=== PATIENT | female | born 1965 | race Caucasian/White ===

== ENCOUNTER → 2018-01-10 07:27 | Outpatient (CLI) | payer OTHER, SELFPAY ==
[2018-01-10 08:18] LABS: Thyroid Stim Hormone (TSH) 2.89 uIU/mL (0.358-3.74)
== END ==
PROVIDERS: Family Provider Family Medicine; PCP Family Medicine; Visit Provider Family Medicine
DX: E66.9 Obesity, unspecified (principal)
CPT/HCPCS: 36415; 84443

== ENCOUNTER 2018-01-19 02:15 | Emergency (ER) | payer OTHER, SELFPAY ==
[2018-01-19 02:17] VITALS: BP 159/79; PULSE 92; RESP 17; TEMP 37.3; O2SAT 96; BMI 38.0
--- NOTE | 2018-01-19 02:23 | CT_ITS ---
STUDY: CT ABDOMEN AND PELVIS WITH CONTRAST REASON FOR EXAM: Female, 52 years old. Increasing nausea and vomiting. RADIATION DOSAGE (If Supplied By Facility): CTDIvol = ( 18.72 ) mGy, DLP = ( 1297.19 ) mGycm TECHNIQUE: Transaxial images were obtained from the dome of the diaphragm to the symphysis pubis without oral contrast. 100ML ml of Isovue 300 contrast was administered. Sagittal and coronal images were reconstructed. Individualized dose optimization techniques were used for this CT. COMPARISON: February 05, 2014. FINDINGS: The visualized lung bases are unremarkable. Mild cardiomegaly. No pericardial effusion. Normal liver. Normal gallbladder and extrahepatic biliary system. Normal spleen. Normal pancreas. Normal bilateral adrenal glands. Normal right kidney. Normal left kidney. Normal visualized stomach. Normal small intestine. Fluid-filled nondilated loops of small bowel. Normal colon. The appendix is well visualized and appears normal. Normal abdominal aorta. Normal inferior vena cava. Normal retroperitoneum. Normal urinary bladder. Uterus grossly normal. Postoperative changes of Essure procedure. No adnexal masses seen. Normal abdominal wall. Normal osseous structures. CT/Abdomen/Pelvis W IV Cont ONLY IMPRESSION: No acute findings in the abdomen or pelvis. No evidence of bowel obstruction. Appendix normal. Normal cardiomegaly. Electronically Signed: Poli Sullivan MD at 4:52 EST , Service support ,
--- NOTE | 2018-01-19 02:33 | ED.DCSUM_ITS ---
- ER Visit Summary Date of Service: 01/19/18 Chief Complaint: Abdominal pain, nausea, vomiting History of Present Illness: The patient is a 52 F Zentz to the emergency department with nausea, vomiting, abdominal pain. The patient is otherwise healthy. She states that about 5 PM yesterday, she had sudden onset abdominal cramping and the urge to vomit. She states she has had approximately 10 episodes of nonbloody, nonbilious emesis. She states that with the vomiting, she has begun to have cramping abdominal pain like a band across her upper abdomen. Last time she moved her bowels was over 24 hours ago. The patient has had no prior abdominal surgery. She denies any fever there was admit to some chills. She has had no urinary symptoms or back pain. Patient has no history of Crohn's disease or ulcerative colitis. She denies any other systemic symptoms. Physical Examination: Vital signs reviewed General: Well-nourished, well-developed Head: Normocephalic, atraumatic Eyes: Pupils equal and reactive, extraocular muscles intact Neck, supple, no lymphadenopathy Heart: Regular rate and rhythm Respiratory: No distress, clear bilaterally Abdomen: Soft, only tender in the midepigastric area without rebound or guarding , hyperactive bowel sounds, nondistended, no peritoneal signs Back: Nontender Extremities: Nontender, no edema, no cords Skin: Normal color no rash Neuro: Alert and oriented, no focal or lateralizing deficits Test Results: Screening legs are relatively unremarkable. CT shows no acute process. Emergency Department Course and Treatment: Patient did have some mild tenderness in the midepigastric area but no rebound or guarding. IV was established. Patient was given Toradol and Zofran. She had resolution of her pain but continued to have nausea. She was given IV Phenergan fluids and had marked improvement of her symptoms. Her labs are unremarkable. The patient has not had a bowel movement and has had vomiting so I did want to rule out obstruction. Patient underwent CT of the abdomen and pelvis. This was unremarkable. There is no acute process. At this time, I do feel the patient is safe for discharge. I will treat her with antiemetics and antispasmodics. She was counseled on concerning symptoms and reasons to return. The patient will be discharged home. Treatment Plan: [] Disposition: Discharge Impression: 1. Abdominal pain 2. Nausea and vomiting This note was generated with [employer] dictation software. It may contain incorrect words, spelling, and punctuation that were not noted in review of the chart prior to signing ED Disposition - Plan for ED Patient: Chief Complaint: Nausea/Vomiting Instructions: ED Nausea Vomiting Prescriptions: Ondansetron [Zofran Odt] 4 mg PO Q8H PRN PRN #10 tab PRN Reason: Nausea Dicyclomine HCl [Bentyl] 20 mg PO TIDAC #20 cap Referrals: Dina Cespedes MD [Primary Care Provider] -
[2018-01-19 02:38] LABS: Absolute Lymphocyte Count 0.56 X10^3/ul (0.83-4.51); Absolute Neutrophil Count 7.7 X10^3/uL (2.0-7.7); Basophil# 0.01 X10^3/uL; Basophil% 0.1 % (0-1); Differential Indicated SCAN CRITERIA MET; Eosinophil# 0.06 X10^3/uL; Eosinophils% 0.7 % (0-5); Hemoglobin 13.6 g/dl (12.0-15.0); Lymphocyte # 0.56 X10^3/ul (4.0); Lymphocyte % 6.3 % (19-41); Mean Corpuscular Hgb 29.8 pg (27.0-32.0); Mean Corpuscular Volume 87.7 fL (81-99); Mean Platelet Vol. 10.7 fl (6.2-12.0); Monocyte# 0.47 X10^3/uL; Monocyte% 5.3 % (0-10); Neutrophil # 7.71 X10^3/uL (2.7-7.7); Neutrophil % 87.4 % (47-70); POSITIVE COUNT NO; POSITIVE DIFFERENTIAL YES; POSITIVE MORPHOLOGY NO; Platelet Count 267 K/mm3 (150-450); RBC Distribution Width CV 13.9 % (11.6-14.6); RBC Distribution Width SD 44.3 fl (35.1-43.9); Red Blood Count 4.56 M/mm3 (4.2-5.4); White Blood Count 8.8 K/mm3 (4.4-11.0)
[2018-01-19] MEDS: 0.9% Normal Saline 1,000 ML 1000 ML IV (02:44)
[2018-01-19] MEDS: Ketorolac 30 MG/ML Syringe 15 MG IV (02:44)
[2018-01-19] MEDS: Ondansetron 4 MG/2 ML Vial IV (02:44)
[2018-01-19 02:53] LABS: ALB/GLOB Ratio 0.9 RATIO (0.9-2.4); AST(SGOT) 13 U/L (15-37); Alanine Aminotransfer ALT/SGPT 20 U/L (13-56); Albumin, Serum 3.4 g/dL (3.2-5.0); Alkaline Phosphatase 83 U/L (45-117); Anion Gap 10 (5-15); BUN 17 mg/dL (7-18); BUN/Creat Ratio 25.5 RATIO (10-20); Calcium,Total 8.1 mg/dL (8.5-10.1); Chloride 109 mmol/L (98-107); Creatinine, Serum 0.67 mg/dL (0.55-1.02); EST Glomerular Filtration Rate 98 mL/min (>60); Est Glom Filt Rate - Afr Amer 119 mL/min (>60); Estimated Creatinine Clearance 89.86 ml/min; Globulin 3.7 g/dL (2.2-4.2); Glucose 119 mg/dL (74-106); Lipase 108 U/L (73-393); Potassium 4.2 mmol/L (3.5-5.1); Protein, Total 7.1 g/dL (6.4-8.2); Sodium Level 140 mmol/L (136-145)
[2018-01-19 04:41] VITALS: BP 135/60; PULSE 78; RESP 16; O2SAT 100
--- NOTE | 2018-01-19 06:08 | ED.RN ---
PT DC'ED BY ANOTHER RN.
== END 2018-01-19 06:08 | disposition home or self-care (01) ==
PROVIDERS: Emergency Provider Emergency Medicine; Family Provider Family Medicine; PCP Family Medicine
DX: R10.13 Epigastric pain (principal); R11.2 Nausea with vomiting, unspecified; R68.83 Chills (without fever); J45.909 Unspecified asthma, uncomplicated
CPT/HCPCS: 74177; 80053; 83690; 85025; 96361; 96374; 96375; 99283; J7030; Q9967; A4216; J2405

== ENCOUNTER 2018-03-04 08:15 | Outpatient (RCR) | payer OTHER, SELFPAY ==
--- NOTE | 2018-01-19 07:49 | MASS.EVAL ---
Massage Therapy Evaluation: Initial Evaluation: Date: 01/18/18 Pt. Name: Angela Casanova :61 V#:[id number] Referring Physician: Dr. 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 Dina Cespedes with the diagnosis of left shoulder and left plantar fascitis. She presents today with symptoms of not able to raise her left arm and pain in left foot . She reports her pain to be 6/10 at worst and 2/10 at rest. The symptoms have been present since July of 2017 for her foot and the past 3 months with left shoulder. The symptoms commenced due to a shoulder injury in the past and not sure the cause of plantar fascitis. The patient also noted that the past 2 months she has been achey all over her body. Angela is currently taking muscle relaxer, breo inhailer, vit d. Objective: The first treatment consisted of a moderate pressure upper body massage. I focused on left upper trapezium, pectorals, deltoid, infra and supra-spinatus, rhomboids,scalenes, left plantar of foot, gastroc, and soleus. Muscle tension was very high and patient was very tender and couldnt handle much pressure. Little trigger point therapy and indian massage was performed. Assessment: Muscles with the most tenderness was the upper trapezium, rhomboids, and supraspinatus. The left calf was very tender with many knots as well. I feel that Angela is a great candidate for massotherapy at this time. Plan: The plan of care was reviewed with the patient. The patient is to be seen once a week for two weeks then as needed on a regular basis for one hour sessions of massotherapy.
--- NOTE | 2018-01-19 08:11 | MASS.EVAL_ITS ---
Massage Therapy Evaluation: Initial Evaluation: Date: 01/18/18 Pt. Name: Angela Casanova :61 V#: [id number] Referring Physician: Dr. 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 Dina Cespedes with the diagnosis of left shoulder and left plantar fascitis. She presents today with symptoms of not able to raise her left arm and pain in left foot . She reports her pain to be 6/10 at worst and 2/10 at rest. The symptoms have been present since July of 2017 for her foot and the past 3 months with left shoulder. The symptoms commenced due to a shoulder injury in the past and not sure the cause of plantar fascitis. The patient also noted that the past 2 months she has been achey all over her body. Angela is currently taking muscle relaxer, breo inhailer, vit d. Objective: The first treatment consisted of a moderate pressure upper body massage. I focused on left upper trapezium, pectorals, deltoid, infra and supra- spinatus, rhomboids,scalenes, left plantar of foot, gastroc, and soleus. Muscle tension was very high and patient was very tender and couldnt handle much pressure. Little trigger point therapy and haitian massage was performed. Assessment: Muscles with the most tenderness was the upper trapezium, rhomboids, and supraspinatus. The left calf was very tender with many knots as well. I feel that Angela is a great candidate for massotherapy at this time. Plan: The plan of care was reviewed with the patient. The patient is to be seen once a week for two weeks then as needed on a regular basis for one hour sessions of massotherapy.
--- NOTE | 2018-11-19 13:47 | MASS.DISCH ---
Massage Therapy Discharge Summary: Discharge Date: 11/18/2018 Angela was seen for a massotherapy evaluation on 01/18/18 with the diagnosis of left shoulder pain and plantar fascitis. She was treated with three sessions of massage therapy consisting of moderate pressure soft tissue techniques, myofascial release and trigger point compression to her upper back, shoulders and feet. Angela responded well to the therapy by reporting decreased tension in her shoulders. Her goals for therapy were not met throughout the treatment sessions due to not scheduling more appointments within the time frame given. At this time this patient is being discharged from our care at [facility] facility.
== END 2018-03-04 19:00 | disposition home or self-care (01) ==
LOC: MASS 08:15
PROVIDERS: Family Provider Family Medicine; PCP Family Medicine; Visit Provider Family Medicine
DX: M54.9 Dorsalgia, unspecified (principal)
CPT/HCPCS: 97124

== ENCOUNTER → 2018-04-13 16:14 | Outpatient (CLI) | payer OTHER, SELFPAY ==
[2018-04-21 10:27] LABS: HPV APTIMA, High Risk Negative (Negative)
[2018-04-21 10:28] LABS: HPV Reflexed? YES, CHARGE PATIENT
== END ==
PROVIDERS: Visit Provider Obstetrics & Gynecology
DX: Z12.4 Encounter for screening for malignant neoplasm of cervix (principal)
CPT/HCPCS: 87624; 88175; G0145

== ENCOUNTER 2018-04-15 06:08 | Day surgery (SDC) | payer OTHER, SELFPAY ==
[2018-04-15 06:30] VITALS: BP 139/66; PULSE 77; RESP 18; TEMP 36.2; O2SAT 96; BMI 37.2
[2018-04-15] MEDS: Bupivacaine Mpf 0.5% 30 ML VIAL (07:40)
[2018-04-15 08:08] VITALS: BP 122/67; BP 139/66; PULSE 86; RESP 18; TEMP 36.6; O2SAT 94
[2018-04-15 08:10] VITALS: BP 116/74; BP 139/66; PULSE 81; RESP 18; O2SAT 93
[2018-04-15 08:15] VITALS: BP 133/63; BP 139/66; PULSE 79; RESP 18; O2SAT 94
[2018-04-15 08:20] VITALS: BP 117/55; BP 139/66; PULSE 81; RESP 18; TEMP 36.3; O2SAT 97
[2018-04-15 08:40] VITALS: BP 139/66
== END 2018-04-15 09:05 | disposition home or self-care (01) ==
LOC: SDC 06:09 → AC 06:10
PROVIDERS: Family Provider Family Medicine; PCP Family Medicine; Visit Provider Podiatrist Foot & Ankle Surgery
PROC: (CPT 29893; principal; 2018-04-15 07:15)
DX: M72.2 Plantar fascial fibromatosis (principal); Z79.899 Other long term (current) drug therapy; G47.30 Sleep apnea, unspecified
CPT/HCPCS: 01464; 29893; J7120; J2405

== ENCOUNTER → 2018-05-30 07:18 | Outpatient (CLI) | payer OTHER, SELFPAY ==
[2018-05-30 08:09] LABS: Absolute Lymphocyte Count 1.99 X10^3/ul (0.83-4.51); Absolute Neutrophil Count 2.8 X10^3/uL (2.0-7.7); Basophil# 0.02 X10^3/uL; Basophil% 0.4 % (0-1); Eosinophil# 0.22 X10^3/uL; Eosinophils% 3.9 % (0-5); Hematocrit 39.6 % (37-47); Hemoglobin 12.8 g/dl (12.0-15.0); Lymphocyte # 1.99 X10^3/ul (4.0); Lymphocyte % 35.2 % (19-41); Mean Corp Hgb Conc 32.3 g/gl (32-36); Mean Corpuscular Hgb 28.6 pg (27.0-32.0); Mean Corpuscular Volume 88.4 fL (81-99); Mean Platelet Vol. 10.9 fl (6.2-12.0); Monocyte% 10.6 % (0-10); Neutrophil # 2.83 X10^3/uL (2.7-7.7); Neutrophil % 49.9 % (47-70); Platelet Count 279 K/mm3 (150-450); RBC Distribution Width CV 13.7 % (11.6-14.6); RBC Distribution Width SD 44.2 fl (35.1-43.9); Red Blood Count 4.48 M/mm3 (4.2-5.4); White Blood Count 5.7 K/mm3 (4.4-11.0)
[2018-05-30 08:10] LABS: POSITIVE COUNT NO; POSITIVE DIFFERENTIAL NO; POSITIVE MORPHOLOGY NO
[2018-05-30 08:32] LABS: AST(SGOT) 24 U/L (15-37); Alanine Aminotransfer ALT/SGPT 38 U/L (13-56); Albumin, Serum 3.9 g/dL (3.2-5.0); Alkaline Phosphatase 90 U/L (45-117); Bilirubin, Direct 0.09 mg/dL (0.00-0.30); Globulin 3.8 g/dL (2.2-4.2); Protein, Total 7.7 g/dL (6.4-8.2)
[2018-06-02 05:08] LABS: QNTFERON TB Ag Minus Nil Value < 0 IU/mL (.); QNTFERON TB Ag Value 0.04 IU/mL (.); QNTFERON TB Mitogen Value > 10.00 IU/mL (.); QNTFERON TB Nil Value 0.09 IU/mL (.)
[2018-06-02 08:11] LABS: QNTIFERON TB Gold Negative (Negative)
== END ==
PROVIDERS: Family Provider Family Medicine; PCP Family Medicine; Visit Provider Dermatology
DX: L40.0 Psoriasis vulgaris (principal); Z79.899 Other long term (current) drug therapy
CPT/HCPCS: 36415; 80076; 85025; 86480

== ENCOUNTER 2018-10-11 16:00 | Outpatient (RCR) | payer OTHER, SELFPAY ==
--- NOTE | 2018-08-09 16:51 | HP.PTEVAL_ITS ---
Patient's Visit Information LAVERNE GRAVES is a 52 year old F referred to Physical Therapy by Dina Cespedes MD with a diagnosis of hip pain. Date of Evaluation: 08/09/18 Physical Therapist: Huma Henry - Visit Plan Frequency: 2x /Week Duration: 6 Weeks Plan: 2X/ week for 6 weeks for centralization of symptoms, postural ex, core stability, hip strength with HEP and modalities as needed - Subjective Subjective: Pt had L plantar fascitis that she had surgery on and that made her R hip hurt. Waking a long distance bothers it and when standing up bothers it. L foot from little toe down the foot is numb and sometimes tingles. Dr Euceda was her surgeon...and he gave her 6 mo to a year. She reports that she always told the Dr that the cast did not feel right and so she is not sure that something was not done with the cast and has not felt right since. Pt has LBP acoss the back and possibly more to the R. She takes a muscle relaxor and she uses that as needed. She takes it once a day as needed. Current R hip symptoms : Burning R posterior back and can radiate down the front of the hip. She had a defined limp before the surgery. No x-rays. No N&T in the R leg.. Stairs are a challenge and burn down to the knee cap so she has to go one foot at a time. At times she can not get comfortable with her hip. - Pain R hip pain Pain Intensity (Out of 10): 2 L foot pain Pain Intensity (Out of 10): 2 - Objective Gait: B hip drop with gait. Pt has a hard time walking on toes on the L (due to surgery?). LE MMT: R hip flexion 4-/5, L hip flex 4/5, B knee ext 4/5, B knee flex 4/5, R hip abd 4-/5 and L hip abd 4/5, B hip ext 3-/5. +SLR on the R - on the L. Tight B hip flexors but pt had increase R groin pain with R prone heel to buttock hip flexore stretch (lumbar extension?) Tight piriformis B but no pain. R hip IR might be slightly limited compared to L but does elicit pain on the R with end range IR. Some increase R groin pain with R L- spine rotation mobs. Prone to PEGGY... no change in groin pain. Prone Press ups 3 X 10 started out with intense back pain and groin pain and then by end the groin pain was a slight 2/10. After the press ups the pt was able to walk a little easier with less pain than prior to press ups. Trunk AROM: ext 25%, flexion 50% - Goals Goal 1:: I HEP Goal Time Frame: 4-6 Weeks Goal 2:: Decrease R hip/groin pain to 1/10 with walking and transitioning to walking Goal Time Frame: 4-6 Weeks Goal 3:: sit with upright posture during treatment sessions Goal Time Frame: 4-6 Weeks Goal 4:: Increase R hip strength to 4/5 hip extension, hip abd Goal Time Frame: 4-6 Weeks - Rehabilitation Potential Rehabilitation Potential: Good - Anticipated Interventions Patient/Client Instruction: Educate patient on: Condition, Plan of Care For the Purpose of:: To decrease pain, To increase ROM, To improve nutrient delivery to tissue, To improve muscle performance and motor function, To improve ability to perform ADL's, To increase tolerance to activity/condition/ position, To improve performance and independence with ADL's, To improve ability of physical actions for home/community/work/leisure, To improve gait and locomotor functions, To improve health of tissue, To decrease soft tissue restriction, To increase flexibility/ROM Therapeutic Exercise to Include: Strength training, Body mechanics, Postural training, Flexibilty training, Gait and locomotor training, Active ROM, Dynamic Lumbar Stabilization, Alvaro Exercises For the Purpose of:: To decrease pain, To increase ROM, To improve nutrient delivery to tissue, To increase oxygenation perfusion, To improve muscle performance and motor function, To improve ability to perform ADL's, To increase tolerance to activity/condition/position, To improve performance and independence with ADL's, To decrease level of supervision to perform tasks, To improve ability of physical actions for home/community/work/leisure, To improve health of tissue, To decrease soft tissue restriction, To increase flexibility/ ROM Manual Therapy Techniques to Include: Mobilization, Passive ROM, Soft tissue mobilization For the Purpose of:: To increase ROM, To improve nutrient delivery to tissue, To improve muscle performance and motor function, To increase tolerance to activity/condition/position IF ES: Yes Cryotherapy (ice pack, ice massage): Yes Thermo therapy (hot pack): Yes Ultrasound (thermal/non thermal): Yes For the Purpose of:: To decrease pain, To increase ROM, To improve nutrient delivery to tissue Thank you for the opportunity to evaluate your patient. For Medicare and Medicare HMO plans, please review the plan of care and approve it. It will need to be FAXED BACK to us at [phone] for Medicare purposes. Please let me know if there are questions or concerns regarding this plan of care. Physician Signature: Date:
--- NOTE | 2018-10-11 16:58 | HP.PTDCSUM ---
HP - PT D/C Summary It has been my pleasure to treat LAVERNE GRAVES under orders from Dina Cespedes MD, for the diagnosis of hip pain for a total of 8 visit(s). Discharge Date: 10/11/18 Please see the following information for a summary of their discharge status. - Subjective Subjective: Pt reports no pain today. Only hurt one time when she stood up but was able to walk it off. She reports that she is doing stretches at home - Pain R hip pain Pain Intensity (Out of 10): 1 L foot pain Pain Intensity (Out of 10): 4 - Overall Improvement % Improvement: 90 - Objective Objective/Function: LE MMT: B hip flex 4/5, B hip abd 4/5, B hip ext 4-/5. Posture: at time still needs a little reminder but overall good posture - Goals Goal 1:: I HEP Goal Progress: Goal Met Goal 2:: Decrease R hip/groin pain to 1/10 with walking and transitioning to walking Goal Progress: Goal Met Goal 3:: sit with upright posture during treatment sessions Goal Progress: Goal Met Goal 4:: Increase R hip strength to 4/5 hip extension, hip abd Goal Progress: Goal Met - Plan Plan: DC PT to HEP - D/C Information Discharge Comments: DC PT to HEP If there are questions or concerns regarding this patient's physical therapy, please feel free to call me at [phone]. Thank you for the referral of this patient. Sincerely, Huma Henry
== END 2018-10-11 19:00 | disposition home or self-care (01) ==
LOC: PT 16:00
PROVIDERS: Family Provider Family Medicine; PCP Family Medicine; Visit Provider Family Medicine
DX: M25.559 Pain in unspecified hip (principal)
CPT/HCPCS: 97014; 97110; 97161; 97530; G0283

== ENCOUNTER → 2018-12-21 10:52 | Outpatient (CLI) | payer OTHER, SELFPAY ==
--- NOTE | 2018-12-21 12:47 | NEURO ---
NCS and/or EMG Patient Report Ordering Doctor: Angela Casanova DATE OF SERVICE: 12/21/18 Angela Casanova is a 52-year-old female presents for electrodiagnostic testing of the upper limbs. She reports numbness and tingling in both hands, worse on the right side Electrodiagnostic findings: The right median motor nerve demonstrates prolonged distal latency, with normal amplitude and conduction velocity. The left median motor nerve demonstrates normal distal latency, amplitude and conduction velocity. Normal ulnar motor response bilaterally. Normal median and ulnar F waves. Prolonged median sensory latency at the wrist is noted bilaterally with a mild reduction in left sided conduction velocity. Needle EMG testing showed no evidence of denervation a muscles tested. Motor unit action potentials were normal amplitude and duration. Next Electrodiagnostic impression: This is an abnormal study in the upper limbs 1. Electrodiagnostic findings demonstrate bilateral median mononeuropathy. This is consistent with a mild bilateral carpal tunnel syndrome. If there are any further questions, please do not hesitate to contact me.
== END ==
PROVIDERS: Family Provider Family Medicine; PCP Family Medicine; Referring Provider Family Medicine; Visit Provider Family Medicine
DX: G56.00 Carpal tunnel syndrome, unspecified upper limb (principal)
CPT/HCPCS: 95886; 95913

== ENCOUNTER → 2019-01-17 08:00 | Outpatient (CLI) | payer OTHER, SELFPAY ==
--- NOTE | 2019-01-17 08:03 | BI_ITS ---
MAMMOGRAPHY - BILATERAL SCREENING REASON FOR EXAM: Female, 53 years old. Routine annual screening examination. PERTINENT HISTORY: Sister with breast cancer. TECHNIQUE: Digital bilateral breast hola (3D mammographic acquisition) in the CC and MLO projections. 2-D mediolateral oblique (MLO) and craniocaudad (CC) views of both breasts were obtained. CAD: Full Field Digital Mammography with Computer Added Detection was performed. COMPARISON: Comparison is made with prior study dated November 16, 2017 and November 13, 2016. FINDINGS: Breast Composition: The breasts are heterogeneously dense, which may obscure small masses. There are no dominant masses or suspicious calcifications. No other significant abnormalities are identified. There has been no significant change since the prior study. BI/SCREENING MAMM (CAD), BILAT IMPRESSION: Stable bilateral screening mammogram. Yearly follow-up mammogram recommended. (A) ASSESSMENT CATEGORY: BIRADS Category 1: Negative. A letter regarding these results will be sent to the patient by the facility within 30 days. Approximately 10% of breast cancers are not detected by mammography. A normal mammogram should not delay biopsy of a clinically suspicious abnormality. [id number] Electronically Signed: Lonnie Grace, at 10:05 EST , Service support ,
== END ==
PROVIDERS: Family Provider Family Medicine; PCP Family Medicine; Referring Provider Family Medicine; Visit Provider Family Medicine
DX: Z12.31 Encounter for screening mammogram for malignant neoplasm of breast (principal)
CPT/HCPCS: 77063; 77067

== ENCOUNTER → 2019-05-10 | Outpatient (CLI) | payer OTHER, SELFPAY ==
--- NOTE | 2019-05-10 10:09 | CT_ITS ---
STUDY: CT CHEST WITH CONTRAST REASON FOR EXAM: Female, 53 years old. Pulmonary nodule RADIATION DOSAGE (If Supplied By Facility): CTDIvol = ( 14.80 ) mGy, DLP = ( 657.18 ) mGycm TECHNIQUE: Transaxial imaging was performed following intravenous administration of 100ml IV Isovue 370. Individualized dose optimization techniques were used for this CT. COMPARISON: Coronary artery calcium scoring 04/26/2019 FINDINGS: 5 mm noncalcified nodule the right lower lobe the lungs on image 54 and follow-up CT the chest is recommended in 12 months document stability. Linear scar in the left lower lobe the lungs. No other noncalcified nodules or masses. There is no demonstrated pleural abnormality. Normal heart and pericardium. Normal mediastinum. Normal hilar regions. Normal enhanced pulmonary arteries. Normal aorta arch and descending thoracic aorta. Normal osseous structures. There is no demonstrated abnormality of the visualized upper abdomen. CT/Chest WITH Contrast IMPRESSION: 5 mm noncalcified right lower lobe nodule and follow-up CT the chest is recommended in 12 months document stability. Electronically Signed: Omari Enrique MD at 16:56 EDT Tel , Service support ,
== END | disposition home or self-care (01) ==
LOC: CT 10:08
PROVIDERS: Family Provider Family Medicine; PCP Family Medicine; Referring Provider Family Medicine; Visit Provider Family Medicine
DX: R91.1 Solitary pulmonary nodule (principal)
CPT/HCPCS: 71260; Q9967

== ENCOUNTER 2019-08-01 07:25 | Emergency (ER) | payer OTHER, SELFPAY ==
[2019-08-01 07:27] VITALS: BP 144/85; PULSE 74; RESP 16; TEMP 36.4; O2SAT 97; BMI 37.1
[2019-08-01] MEDS: Meclizine HCl 25 MG Tablet PO (07:46)
--- NOTE | 2019-08-01 07:49 | ED.DCSUM_ITS ---
- ER Visit Summary Date of Service: 08/01/19 Chief Complaint: Dizziness History of Present Illness: The patient is a 53 F with dizziness that started when she bent forward around 5:30 AM to get laundry out of the machine. She felt like she was going to pass out. She has some degree of chronic vertigo, but today her symptoms are worse. She does feel the room spinning. Symptoms are worse with changing position and moving her head. She tried to lay down but it did not help. She does not have medication for this, but was on meclizine in the past. She does report a right sided ear ache and increased cerumen. She also reports foul-smelling urine. No other associated symptoms or new issues. No significant past medical history. No blood thinners. Physical Examination: Afebrile and vital signs are unremarkable. She has positive horizontal nystagmus but no other abnormal HEENT exam findings. Ears are clear and TMs are normal. Neck is unremarkable. Heart normal. Lungs clear. Skin appears normal. Good strength and sensation. Cranial nerves grossly intact. Test Results: Orthostatics and urinalysis pending. Emergency Department Course and Treatment: Patient presents with vertigo and near syncope. Symptoms started with change in position. I believe this is a peripheral vertigo. She has a history of this. There are no new or concerning findings like new signs or symptoms. She was treated with meclizine. We will check a urinalysis given her symptoms. We will also check orthostatics given the positional component. Orthostatics were negative. She had some hypertension, but not high enough to cause symptoms. Her urinalysis was negative. On reevaluation, her vertigo is better. She still has some continued symptoms, but it was much improved. She was able to ambulate and use the restroom. No new or different symptoms. I believe this is peripheral vertigo. There is nothing to suggest central etiology. No further diagnostic testing is indicated. Patient will be referred to ENT for follow-up. Prescription for meclizine. Return for any new or worsening issues. Treatment Plan: As above Disposition: Discharge Impression: 1. Vertigo This note was generated with [employer] software. It may contain incorrect words, spelling, and punctuation that were not noted in review of the chart prior to signing ED Disposition - Plan for ED Patient: Referrals: Rose Ronquillo MD [Primary Care Provider] -
[2019-08-01 07:50] LABS: Bacteria 0 SEEN /hpf (None Seen); Mucous, Urine 0 SEEN /hpf (<or=2+); Red Blood Cells-Urine 0 SEEN /hpf (0-5); White Blood Cells 0 SEEN /hpf (0-5)
[2019-08-01 07:56] LABS: Color, Urine Yellow (Yellow); Glucose, Dipstick Normal (Normal); Ketone-Dipstick Negative (Negative); Leukocyte Esterase-Dipstick Negative /ul (Negative); Nitrite-Dipstick Negative (Negative); Occult Blood-Urine Negative /ul (Negative); Protein-Dipstick Negative (Negative); Specific Gravity, Urine 1.005 (1.002-1.030); Urine Bilirubin Dipstick Negative (Negative); Urine Clarity Sl. Cloudy (Clear); Urine Urobilinogen Normal (Normal); Urine pH 6.5 (5.0 - 8.0)
[2019-08-01 08:06] LABS: Squamous Epithelial Cells - UA 0-5 SEEN /hpf (5-10)
[2019-08-01 08:12] VITALS: BP 126/62; BP 138/81; BP 148/88; PULSE 72; PULSE 84; PULSE 87
--- NOTE | 2019-08-01 09:10 | ED.DEP ---
ED Disposition - Plan for ED Patient: Instructions: VERTIGO, Unspecified Prescriptions: Meclizine HCl [Antivert] 25 mg PO 4X/DAY PRN PRN #20 tab PRN Reason: Vertigo Prescription Printed Referrals: Zelalem Godfrey MD [STAFF PHYSICIAN] -
== END 2019-08-01 09:23 | disposition home or self-care (01) ==
PROVIDERS: Emergency Provider Emergency Medicine; Family Provider Internal Medicine; PCP Internal Medicine
DX: R42 Dizziness and giddiness (principal); H92.01 Otalgia, right ear
CPT/HCPCS: 81001; 99283

== ENCOUNTER → 2019-12-08 14:48 | Outpatient (CLI) | payer OTHER, SELFPAY ==
[2019-10-30 16:04] VITALS: BMI 39.2
[2019-12-12 19:39] LABS: HPV Reflexed? NOT INDICATED
== END ==
PROVIDERS: Visit Provider Obstetrics & Gynecology
DX: Z12.4 Encounter for screening for malignant neoplasm of cervix (principal)
CPT/HCPCS: 88175; G0145

== ENCOUNTER 2019-12-22 06:07 | Day surgery (SDC) | payer OTHER, SELFPAY ==
[2019-10-30 16:04] VITALS: BMI 39.2
--- NOTE | 2019-12-06 08:26 | PCM.HP.BLA ---
History and Physical History and Physical Patient Name: Angela Casanova : 1965 From: CRIS NAZARIO NP DATE OF SURGERY: 12/22/2019 SCHEDULED PROCEDURE: Right carpal tunnel release HISTORY OF PRESENT ILLNESS: Preoperative history and physical exam was performed on December 01, 2019. This is a 53-year-old female who has been having an ongoing bilateral hand pain, numbness and tingling since November 2017. She does wake up at night with numbness and tingling in her hands. The numbness and tingling is primarily in the index finger. The right hand is worse than the left. She does drop items due to the weakness, numbness and tingling in bilateral hands. The pain is made worse while typing on a computer. Previous treatments include night splints, muscle relaxers, anti-inflammatories and cortisone injections. Patient currently denies any chest pain, shortness of breath, fevers, chills or recent infections. Patient does have a medical history pertinent for exercise-induced asthma. She does take Breo once daily. She also has a rescue inhaler in which she has not used within the last 3 years. REVIEW OF SYSTEMS: ROS: Const: Denies anorexia, anxiety, change in appetite, fever and weight change,hard of hearing, and vision problems. CV: Denies chest pain, heart murmur, irregular heartbeat and peripheral vascular disease. Resp: Denies asthma, cough, pneumonia, sleep apnea, shortness of breath, tuberculosis and wheezing. GI: Denies constipation, diarrhea, heartburn, nausea, bloody stools and vomiting, and difficulty swallowing. : Reports irregular menstrual periods. Denies incontinence. Musculo: Denies leg swelling, trouble walking and weakness and limp. Skin: Denies Raynaud's, history of shingles and tattoo. Neuro: Denies ambulatory dysfunction, dizziness, numbness/tingling and tremor. Psych: Denies anxiety, depression, insomnia, mental illness and stress. Garry/Lymph: Denies anemia, bleeding/bruising tendency and past transfusion. Reviewed, no changes. PAST MEDICAL HISTORY: Advance Care Plan: No Advance Directives Effective Date: 01/12/2019 PMH: Medical Problems: None Accidents: None Surgical Hx: RT Foot - (03/2018) Anesthesia Complications: None Assistive Devices: None Reviewed, no changes. 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 Personal Habits: Cigarette Use: Never.Smokeless Tobacco: Never Used Smokeless Tobacco.E-Cigarette Use: Never used.Alcohol: Occasionally.Drug Use: Denies Use.Enjoy Exercising: Exercises 1-3 X/Week. Reviewed, no changes. VITALS: Ht: 65.5 Wt: 236lb Wt k.050 BMI: 38.7 BP: 120/68 Pulse: 72 Resp: 20 T: 97.5 T: 36.4C ALLERGIES: Penicillin - Nausea Codeine - Rash & Nausea MEDICATIONS: Breo Ellipta uad daily, Nabumetone 500 mg prn PRE-OP EXAM: General appearance:NORMAL Other: Eyes: Conjunctivae and lids: NORMAL Pupils: ERR Ears, Nose, Mouth, and Throat: NORMAL Other: Inspection of lips, teeth and gums: NORMAL Other: Neck: Examination of neck: no masses noted. Respiratory: Assessment of respiratory effort: NORMAL Other: Auscultation of lungs: clear to auscultation no wheezes, rhonchi or rales. Cardiovascular: Auscultation of heart: regular rate and rhythm, no murmurs, gallops or rubs. Gastrointestinal: Exam of abdomen: soft, nontender, non distended bowel sounds present. PHYSICAL EXAMINATION: She has positive Tinel's, Phalen's and nerve compression test at the wrist. Two-point discrimination 5 mm or less at all 10 fingers. Reasonable strength to thumb abduction proposal development manager testing. Hands are neurovascularly intact. IMAGING STUDIES: An EMG was obtained on December 21, 2018 at [facility] revealing a mild bilateral carpal tunnel syndrome. IMPRESSION: 1. Bilateral carpal tunnel syndrome 2. Exercise-induced asthma 3. Obesity, BMI 38.7 PLAN: Dr. Jelani Krishna did discuss and review with the patient all treatment options including surgical versus nonsurgical options. At this time the patient does wish to proceed with a right carpal tunnel release under local anesthesia. Potential risks, benefits and complication of the procedure were reviewed in detail including but not limited to , infection, nerve or blood vessel damage, persistent pain, numbness, tingling, paresthesia, blood clot, pulmonary embolism and the requirement for possible further surgery. The patient expressed full understanding and has no further questions for the doctor. She does agree to proceed with the above-stated procedure and has signed the surgery consent form. ___ I have re-examined the patient. There are no clinical changes since date of exam. ___ See progress notes for changes. ___ Dictated on admission Date: Time:
[2019-12-22 06:25] VITALS: BP 127/58; PULSE 72; RESP 16; TEMP 36.7; O2SAT 100; BMI 38.6
--- NOTE | 2019-12-22 08:06 | PRO.PCM_ITS ---
Procedure Report Preoperative diagnosis: Right Carpal tunnel syndrome Postoperative diagnosis: Same Title of operation: Open right carpal tunnel release Surgeon: Dr. Jelani Krishna Anesthesia: Local Complications none EBL minimal Indications for surgery: Patient seen and evaluated in the office. Diagnosed with carpal tunnel syndrome. They have failed adequate nonoperative treatment. Due to persistent symptoms they wish to proceed with carpal tunnel release surgery appropriate informed consent was obtained and signed. Details of procedure: Patient was taken to the OR and transferred to the OR table. Appropriate timeouts were performed. Well-padded tourniquet was applied to the operative upper extremity proximally. Area was prepped with alcohol. Local anesthetic was administered using 8 cc of 2% lidocaine plain. Operative extremity was prepped padded and draped in usual orthopedic sterile fashion for the procedure. Limb was exsanguinated. Tourniquet applied to 250 mmHg. Three centimeter incision was made over the palm. Carefully taken through skin, subcutaneous tissue, down onto the transverse carpal ligament. Transverse ca rpal ligament was opened at the midportion with a knife. Elevator was carefully placed underneath the transverse carpal ligament in a distal direction. I dissected down onto that with a knife. Elevator was then placed in a proximal direction, again directly underneath the transverse carpal ligament. I dissected down on that with a knife. Scissors were used at the proximal extent placed under direct visualization. This fully released the proximal extent of the transverse carpal ligament. At this point my small finger was placed proximally and distally to assure complete release of the transverse carpal ligament over the median nerve. FPL tendon was noted. No significant abnormalities were noted at the region of the carpal canal. Tourniquet was let down. Bleeding controlled with the Bovie. Wound thoroughly irrigated. No undue bleeding noted. Skin edges were reapproximated with a 4-0 nylon. Sterile bandage was applied. Patient was awoken from the anesthetic. Transferred to the room bed. To recovery room in satisfactory condition. TT 6 minutes Patient will be discharged home. Ice and elevation recommended. Pain medication as needed. Follow-up in the office 2 weeks as scheduled. This note was generated with [employer] software. It may contain incorrect words, spelling, and punctuation that were not noted in checking the note before signing.
[2019-12-22 08:10] VITALS: BP 127/58; BP 130/56; PULSE 67; RESP 16; TEMP 36.6; O2SAT 97
[2019-12-22] MEDS: Acetaminophen 500 MG Tablet 1000 MG PO (08:20)
== END 2019-12-22 08:35 | disposition home or self-care (01) ==
LOC: SDC 06:08 → AC 06:09
PROVIDERS: Family Provider Internal Medicine; PCP Internal Medicine; Referring Provider Orthopaedic Surgery; Visit Provider Orthopaedic Surgery
PROC: (CPT 64721; principal; 2019-12-22 07:15)
DX: G56.03 Carpal tunnel syndrome, bilateral upper limbs (principal); J45.990 Exercise induced bronchospasm; E66.9 Obesity, unspecified; Z68.38 Body mass index [BMI] 38.0-38.9, adult
CPT/HCPCS: 64721

== ENCOUNTER → 2020-03-04 11:35 | Outpatient (CLI) | payer OTHER, SELFPAY ==
[2019-10-30 16:04] VITALS: BMI 39.2
[2020-01-03 06:30] VITALS: BMI 39.0
--- NOTE | 2020-03-04 11:30 | BI_ITS ---
MAMMOGRAPHY - BILATERAL SCREENING REASON FOR EXAM: Female, 54 years old. Routine annual screening examination. PERTINENT HISTORY: Sister with breast cancer. TECHNIQUE: Digital bilateral breast kade (3D mammographic acquisition) in the CC and MLO projections. 2-D mediolateral oblique (MLO) and craniocaudad (CC) views of both breasts were obtained. CAD: Full Field Digital Mammography with Computer Added Detection was performed. COMPARISON: Comparison is made with prior study dated January 17, 2019 and November 16, 2017. FINDINGS: Breast Composition: The breasts are heterogeneously dense, which may obscure small masses. There are no dominant masses or suspicious calcifications. Stable benign-appearing bilateral axillary No other significant abnormalities are identified. There has been no significant change since the prior study. BI/SCREEN MAMM (CAD) W/KADE BILAT IMPRESSION: Stable bilateral screening mammogram. Yearly follow-up mammogram recommended. (A) ASSESSMENT CATEGORY: BIRADS Category 2: Benign. A letter regarding these results will be sent to the patient by the facility within 30 days. Approximately 10% of breast cancers are not detected by mammography. A normal mammogram should not delay biopsy of a clinically suspicious abnormality. [id number] Electronically Signed: Lonnie Grace, at 12:34 EDT , Service support ,
== END ==
PROVIDERS: PCP Internal Medicine; Referring Provider Internal Medicine; Visit Provider Internal Medicine
DX: Z12.31 Encounter for screening mammogram for malignant neoplasm of breast (principal)
CPT/HCPCS: 77063; 77067

== ENCOUNTER → 2020-04-24 07:31 | Outpatient (CLI) | payer OTHER, SELFPAY ==
[2020-04-24 06:56] VITALS: BMI 39.0
--- NOTE | 2020-04-24 07:33 | RAD_ITS ---
STUDY: X-RAY - LEFT HAND REASON FOR EXAM: Female, 54 years old. BRUISE/ STS TO LT THUMB DISTAL PHALL. HX TRAUMA TECHNIQUE: 3 view(s) of the hand. COMPARISON: None. FINDINGS: Normal radiocarpal articulation. Normal distal radioulnar joint. Normal visualized carpal bones. Normal carpal articulations Normal carpometacarpal articulation of the thumb. Normal second through fifth carpometacarpal joints. Normal metacarpi. Normal metacarpophalangeal joint of the thumb. Normal interphalangeal joint of the thumb. Nondisplaced oblique fracture of the distal and middle portions of the distal phalanx of the thumb. Normal metacarpophalangeal joints of the second through fifth fingers. Normal proximal and distal interphalangeal joints of the second through fifth fingers. Normal phalanges of the second through fifth fingers. Soft tissue swelling. RAD/Hand Min 3 Views IMPRESSION: Nondisplaced oblique fracture of the distal and midportion of the distal phalanx of the thumb. Electronically Signed: Lonnie Grace, at 8:44 EDT , Service support ,
== END ==
PROVIDERS: PCP Internal Medicine; Referring Provider Physician Assistant; Visit Provider Physician Assistant
DX: S69.92XA Unspecified injury of left wrist, hand and finger(s), initial encounter (principal)
CPT/HCPCS: 73130

== ENCOUNTER → 2020-05-01 16:10 | Outpatient (CLI) | payer OTHER, SELFPAY ==
[2020-05-01 15:34] VITALS: BMI 39.0
[2020-05-01 17:16] LABS: Absolute Lymphocyte Count 2.46 X10^3/uL (0.83-4.51); Absolute Neutrophil Count 5.6 X10^3/uL (2.0-7.7); Basophil# 0.03 X10^3/uL; Basophil% 0.3 % (0-1); Eosinophil# 0.22 X10^3/uL; Eosinophils% 2.4 % (0-5); Hematocrit 39.8 % (37-47); Hemoglobin 12.9 g/dL (12.0-15.0); Lymphocyte # 2.46 X10^3/ul (4.0); Lymphocyte % 27.1 % (19-41); Mean Corp Hgb Conc 32.4 g/dL (32-36); Mean Corpuscular Hgb 28.8 pg (27.0-32.0); Mean Corpuscular Volume 88.8 fL (81-99); Mean Platelet Vol. 11.2 fl (6.2-12.0); Monocyte# 0.74 X10^3/uL; Monocyte% 8.1 % (0-10); NRBC Flagged by Analyzer 0 % (0-5); Neutrophil # 5.61 X10^3/uL (2.7-7.7); Neutrophil % 61.8 % (47-70); Platelet Count 289 K/mm3 (150-450); RBC Distribution Width CV 13.4 % (11.6-14.6); RBC Distribution Width SD 43.6 fl (35.1-43.9); Red Blood Count 4.48 M/mm3 (4.2-5.4); White Blood Count 9.1 K/mm3 (4.4-11.0)
[2020-05-01 17:38] LABS: AST(SGOT) 22 U/L (15-37); Alanine Aminotransfer ALT/SGPT 50 U/L (13-56); Albumin, Serum 3.9 g/dL (3.2-5.0); Alkaline Phosphatase 99 U/L (45-117); Bilirubin, Direct 0.16 mg/dL (0.00-0.30); Globulin 3.8 g/dL (2.2-4.2); Protein, Total 7.7 g/dL (6.4-8.2)
[2020-05-01 18:43] LABS: Thyroid Stim Hormone (TSH) 2.67 uIU/mL (0.358-3.74)
[2020-05-04 20:07] LABS: QNTFERON TB Mitogen Value > 10.00 IU/mL (.); QNTFERON TB Nil Value 0.03 IU/mL (.); QNTFERON TB1+ Ag Value 0.02 IU/mL (.); QNTFERON TB2+ Ag Value 0.02 IU/mL (.)
[2020-05-05 00:26] LABS: QNTIFERON TB Positive Criteria Negative (Negative)
== END ==
PROVIDERS: Nurse Practitioner Family; PCP Internal Medicine; Referring Provider Dermatology; Visit Provider Dermatology
DX: L40.0 Psoriasis vulgaris (principal); Z79.899 Other long term (current) drug therapy
CPT/HCPCS: 36415; 80076; 84443; 85025; 86480

== ENCOUNTER → 2020-05-28 09:01 | Outpatient (CLI) | payer OTHER, SELFPAY ==
[2020-05-01 15:34] VITALS: BMI 39.0
--- NOTE | 2020-05-28 09:01 | CT_ITS ---
STUDY: CT ABDOMEN AND PELVIS WITH CONTRAST REASON FOR EXAM: Female, 54 years old. WEIGHT LOSS WITH DIFFUSE ABDOMINAL PAIN RADIATION DOSAGE (If Supplied By Facility): CTDIvol = ( 17.06 ) mGy, DLP = ( 1241.84 ) mGycm TECHNIQUE: Transaxial images were obtained from the dome of the diaphragm to the symphysis pubis with oral contrast. Oral and amp; IV Gastrografin and amp; 100mL Isovue-300 was administered. Sagittal and coronal images were reconstructed. Individualized dose optimization techniques were used for this CT. COMPARISON: Comparison is made with prior study dated January 19, 2018. FINDINGS: Stable minimal increased markings at the lung bases suggestive of basilar atelectasis. The visualized portions of the heart are within normal limits. There is decreased attenuation of the liver consistent with steatosis. Normal gallbladder and extrahepatic biliary system. Normal spleen. Normal pancreas. Normal bilateral adrenal glands. Normal right kidney. Stable appearance of the left parapelvic renal cysts. Normal visualized stomach. Normal small intestine. Normal colon. The appendix is visualized and appears normal. Normal abdominal aorta. Normal inferior vena cava. Normal retroperitoneum. Normal urinary bladder. ESSURE device is seen in the fallopian tubes bilaterally. Normal abdominal wall. Normal osseous structures. CT/Abdomen/Pelvis WITH Contrast IMPRESSION: Fatty infiltration of the liver. Left parapelvic renal cyst. Electronically Signed: Lonnie Grace, at 10:10 EDT , Service support ,
== END ==
PROVIDERS: PCP Internal Medicine; Referring Provider Nurse Practitioner Family; Visit Provider Nurse Practitioner Family
DX: R10.9 Unspecified abdominal pain (principal); R19.7 Diarrhea, unspecified
CPT/HCPCS: 74177; Q9967

== ENCOUNTER → 2020-06-24 13:08 | Outpatient (CLI) | payer OTHER, SELFPAY ==
[2020-06-24 13:06] VITALS: BMI 39.0
--- NOTE | 2020-06-24 13:09 | RAD_ITS ---
STUDY: X-RAY - LEFT KNEE REASON FOR EXAM: Female, 54 years old. Knee pain x one week, nki TECHNIQUE: 4 view(s) of the knee. COMPARISON: None. FINDINGS: Normal visualized distal femur. Normal visualized proximal tibia and fibula. Normal proximal tibiofibular articulation. There is mild degenerative arthrosis of the medial femorotibial compartment. Normal lateral femorotibial compartment. Normal patellofemoral articulation. Minimal joint effusion. RAD/Knee 4 or More Views IMPRESSION: Degenerative arthrosis. Electronically Signed: Lonnie Grace, at 13:44 EDT , Service support ,
== END ==
PROVIDERS: PCP Internal Medicine; Referring Provider Physician Assistant; Visit Provider Physician Assistant
DX: S89.92XA Unspecified injury of left lower leg, initial encounter (principal)
CPT/HCPCS: 73564

== ENCOUNTER → 2020-07-17 13:45 | Outpatient (CLI) | payer OTHER, SELFPAY ==
[2020-06-24 13:06] VITALS: BMI 39.0
--- NOTE | 2020-07-17 13:50 | MRI_ITS ---
STUDY: MRI LEFT KNEE REASON FOR EXAM: Female, 54 years old. left knee osteoarthritis, medial pain, swelling, clicking, pain since 06/19/20 TECHNIQUE: Standardized fat and water weighted pulse sequences were obtained in all 3 orthogonal planes. COMPARISON: None. FINDINGS: A large complex tear is present in the middle one third and inner one third aspect of the posterior horn of medial meniscus with the largest component extending to the undersurface. Normal anterior horn and body. There is diffuse, less than 50% thickness articular cartilage loss of the medial femorotibial compartment. Moderate subchondral reactive edema is present in the medial tibial plateau. No visualized fracture. Small cortical spurs are present in the medial compartment. Normal medial collateral ligamentous complex (MCL). Normal distal semimembranosus, gracilis and semitendinosus tendons. Normal lateral meniscus. Normal hyaline cartilage of the lateral femorotibial compartment. Normal lateral femoral condyle and tibial plateau. Normal proximal tibiofibular articulation. Normal lateral collateral (fibular) ligament. Normal popliteus tendon. Normal biceps femoris tendon. Normal anterior cruciate ligament (ACL). Normal posterior cruciate ligament (PCL). Normal congruent patellofemoral articulation. Full-thickness loss of cartilage is demonstrated over the median patellar ridge. There is moderate cartilage loss in the trochlear groove. The cartilage over the patella facets is preserved. Normal medial and lateral patellar retinaculum. Normal quadriceps tendon. Normal patellar tendon. Normal Hoffa''s fat pad. A small joint effusion is present. Mild edema is present in anterior aspect knee joint. MRI/Lower Ext Joint Only (Routine) IMPRESSION: 1. Moderate subchondral reactive edema in the medial tibial plateau 2. Large complex tear in the posterior horn of medial meniscus 3. Full-thickness loss of cartilage over the median ridge of the patella. Electronically Signed: Mike Palafox MD at 17:48 EDT , Service support ,
== END ==
PROVIDERS: PCP Internal Medicine; Referring Provider Physician Assistant; Visit Provider Physician Assistant
DX: M17.12 Unilateral primary osteoarthritis, left knee (principal)
CPT/HCPCS: 73721

== ENCOUNTER 2020-07-24 08:30 | Outpatient (RCR) | payer OTHER, SELFPAY ==
[2020-06-24 13:06] VITALS: BMI 39.0
--- NOTE | 2020-07-04 08:01 | HP.PTEVAL_ITS ---
Patient's Visit Information LAVERNE GRAVES is a 54 year old F referred to Physical Therapy by FLORY Ricketts with a diagnosis of Left Knee Pain. Date of Evaluation: 07/04/20 Physical Therapist: Cayla Brooks DPT - Visit Plan Frequency: 2x /Week Duration: 4 Weeks Plan: Focus on LE and core strength/stabilization- US for inflammation control. HEP given 07/04:Quad set, SLR, hamstring stretch, clams - Subjective Patient reports that she woke up one morning and had pain everywhere-insidous on set- then it settled into he left knee. About a week ago [facility] and had [facility] dose pack- so that really helped at the beginning and now its back to where it was before. Went to see [facility] last week- she had her do PT and will have her come in next week. Had an x-ray on the knee but no MRI. 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 Pain is located in the medial joint line- no radiating pain. Best: 0/10 Eases: sitting down, ice. Worst: 5/10 Agg: being up on her feet. Pain is gone instantly when she sits down. Describes the pain as sharp- no new N/T in the LE. Sleep: not disturbed since the steroids. PMHx: none Meds: prednisone - Objective Posture: FH, RS- can correct but does not maintain. Gait: antalgic- decreased stance on the left LE with poor heel/toe pattern. Stairs: asc/desc 8 recip with bilateral UE hand hold with significant UE use for propulsion and controlled descent. HR/TR: able without pain. SLS: unable but is able to weight shift with pain. ROM: 0-120 degrees with pain at end range flexion. Strength: Core: fair Hip: 4-/5 Knee: 4+/5, Ankle: 5/5. Flex: HS: moderate, Gastroc: moderate. Palpation: tender along medial joint line. Special Test: Peyton: positive - Goals Goal 1:: Patient will be I with HEP and progression Goal Time Frame: 4-6 Weeks Goal 2:: Patient will ambulate >300 feet with a normalized gait pattern Goal Time Frame: 4-6 Weeks Goal 3:: Patient will asc/desc 8 stairs recip with 1 HR Goal Time Frame: 4-6 Weeks Goal 4:: Patient will report no pain for 1 week in the left knee with alll normal ADL's and work related tasks Goal Time Frame: 4-6 Weeks - Rehabilitation Potential Physical Therapy Diagnosis: Patient presents with hypomobility- she has decreased painfree ROM, strength, flex and muscular endurance leading to increased pain with ADL's. Rehabilitation Potential: Good - Anticipated Interventions Patient/Client Instruction: Educate patient on: Benefits of Fitness Program Therapeutic Exercise to Include: Strength training, Endurance training, Balance training, Body mechanics, Postural training, Flexibilty training, Gait and locomotor training, Dynamic Lumbar Stabilization For the Purpose of:: To improve muscle performance and motor function TENS: Yes Cryotherapy (ice pack, ice massage): Yes Thermo therapy (hot pack): Yes Ultrasound (thermal/non thermal): Yes Thank you for the opportunity to evaluate your patient. For Medicare and Medicare HMO plans, please review the plan of care and approve it. It will need to be FAXED BACK to us at [phone] for Medicare purposes. For Medicare only, by signing this I certify the plan of care. Please let me know if there are questions or concerns regarding this plan of care. Physician Signature: Dat e:
--- NOTE | 2020-10-31 11:43 | HP.PT.NRP ---
LAVERNE GRAVES was seen in my office for initial evaluation on 07/04/20. The following Plan of Care was established for this patient: Initial Frequency: 2x /Week Initial Duration: 4 Weeks Patient/Client Instruction: Educate patient on: Benefits of Fitness Program Therapeutic Exercise to Include: Strength training, Endurance training, Balance training, Body mechanics, Postural training, Flexibilty training, Gait and locomotor training, Dynamic Lumbar Stabilization For the Purpose of:: To improve muscle performance and motor function TENS: Yes Cryotherapy (ice pack, ice massage): Yes Thermo therapy (hot pack): Yes Ultrasound (thermal/non thermal): Yes This patient was last seen in our office . Pertinent comments regarding their Physical therapy will appear below: Patient has not returned to PT in over 8 weeks- appropriate for discharge and return to MD for further evaluation. At this point I will be discontinuing this patient from physical therapy. I would be happy to see this patient again in the future if found appropriate by the physician. Thank you! Cayla Brooks DPT
== END 2020-07-24 19:00 | disposition home or self-care (01) ==
LOC: PT 08:30
PROVIDERS: PCP Internal Medicine; Referring Provider Physician Assistant; Visit Provider Physician Assistant
DX: M17.12 Unilateral primary osteoarthritis, left knee (principal)
CPT/HCPCS: 97035; 97110; 97161

== ENCOUNTER → 2020-08-08 13:05 | Outpatient (CLI) | payer OTHER, SELFPAY ==
[2020-07-24 15:44] VITALS: BMI 39.0
--- NOTE | 2020-08-08 13:06 | BD_ITS ---
STUDY: DUAL ENERGY X-RAY ABSORPTIOMETRY / DXA REASON FOR EXAM: Female, 54 years old. Age of aquiles- 53. Pat is 235.6# and 64 and quot; a loss of 1 and quot; per patient. Has had a few or more steroid injections. Does a little exercising. Hx of a left thumb fx. TECHNIQUE: Bone Mineral Density (BMD) measurements of lumbar spine and bilateral hips were obtained. COMPARISON: None. FINDINGS: Lumbar Spine (L1-L4): g/cm2 (1.084) / T-score (-0.8) / Z-score (0.1) Findings are suggestive of normal bone density with a low fracture risk. Left Femur Total: g/cm2 (1.131) / T-score (1.0) / Z-score (1.7) Left Femoral Neck: g/cm2 (1.013) / T-score (-0.2) / Z-score (0.9) Right Femur Total: g/cm2 (1.186) / T-score (1.4) / Z-score (2.1) Right Femoral Neck: g/cm2 (1.188) / T-score (1.1) / Z-score (2.2) BD/Dexa Bone Density Study IMPRESSION: The patient is considered normal as outlined below according to World Reg Organization (WHO) criteria with a low fracture risk. . Reference Information: The T-score is the number of standard deviations above or below the standard which is normal for young adults at their peak bone mineral density. The World Health Organization (WHO) interprets the T-scores as follows: Above -1 Normal bone density Between -1 and -2.5 Osteopenia Equal to / or below -2.5 Osteoporosis As a practical clinical guideline, osteopenia may be graded as follows: Mild -1 through -1.5 Moderate -1.6 through -2.0 Severe -2.1 through -2.4 The Z-score is the number of standard deviations above or below age-matched controls. A Z-score of less than -1.5 would be considered abnormal. References: 1. NIH Osteoporosis and Related Bone Diseases http://www.osteo.org 2. International Society for Clinical Densitometry http://www.iscd.org 3. National Osteoporosis Foundation http://www.nof.org Electronically Signed: Lonnie Grace, at 15:18 EDT , Service support ,
== END ==
PROVIDERS: PCP Internal Medicine; Referring Provider Nurse Practitioner Family; Visit Provider Nurse Practitioner Family
DX: Z78.0 Asymptomatic menopausal state (principal)
CPT/HCPCS: 77080

== ENCOUNTER 2020-11-01 11:14 | Day surgery (SDC) | payer OTHER, SELFPAY ==
[2020-06-24 13:06] VITALS: BMI 39.0
[2020-07-24 15:44] VITALS: BMI 39.0
--- NOTE | 2020-10-25 09:13 | EKG12_ITS ---
Test Reason : PREOP Blood Pressure : / mmHG Vent. Rate : 086 BPM Atrial Rate : 086 BPM P-R Int : 174 ms QRS Dur : 074 ms QT Int : 370 ms P-R-T Axes : 054 062 067 degrees QTc Int : 442 ms Normal sinus rhythm Normal ECG Confirmed by GINNY DIETZ, ESPERANZA ([id number]), editor at large RONDA NORTH ([id number]) on 10/28/2020 1:39:01 PM Referred By: Jelani Krishna Confirmed By:ESPERANZA GROSS MD
--- NOTE | 2020-10-25 09:15 | RAD_ITS ---
STUDY: X-RAY CHEST REASON FOR EXAM: Female, 54 years old. PRE OP, NO CHEST COMPLAINTS TECHNIQUE: PA and lateral views of the chest. COMPARISON: Comparison is made with prior examination dated 06/20/2015. FINDINGS: The lungs are clear and expanded. There is no demonstrated pleural abnormality. Normal size heart. Normal mediastinum and kavitha. Normal visualized pulmonary arteries. Normal visualized aortic arch and descending thoracic aorta. There are mild degenerative changes of the visualized thoracic spine. Normal visualized ribs, clavicles, and shoulders. There is no demonstrated abnormality of the visualized soft tissue structures of the upper abdomen. RAD/Chest PA and Lateral IMPRESSION: No acute abnormality is seen. Electronically Signed: Lonnie Grace, at 10:47 EST , Service support ,
[2020-10-25 09:21] LABS: Hematocrit 40.3 % (37-47); Hemoglobin 12.7 g/dL (12.0-15.0); Mean Corp Hgb Conc 31.5 g/dL (32-36); Mean Corpuscular Hgb 28.4 pg (27.0-32.0); Mean Corpuscular Volume 90.2 fL (81-99); Mean Platelet Vol. 10.3 fl (6.2-12.0); Platelet Count 285 K/mm3 (150-450); RBC Distribution Width CV 13.1 % (11.6-14.6); RBC Distribution Width SD 43.2 fl (35.1-43.9); Red Blood Count 4.47 M/mm3 (4.2-5.4); White Blood Count 6.2 K/mm3 (4.4-11.0)
[2020-10-25 09:44] LABS: Anion Gap 4 (5-15); BUN 20 mg/dL (7-18); BUN/Creat Ratio 28.4 RATIO (10-20); Calcium,Total 9.2 mg/dL (8.5-10.1); Chloride 106 mmol/L (98-107); EST Glomerular Filtration Rate 91 mL/min (>60); Est Glom Filt Rate - Afr Amer 110 mL/min (>60); Glucose 95 mg/dL (74-106); Potassium 4.6 mmol/L (3.5-5.1); Sodium Level 139 mmol/L (136-145)
[2020-11-01] VITALS (8 sets, daily range): BP systolic 116–129; BP diastolic 47–78; PULSE 84–96; RESP 16–85; TEMP 36.3–37.2; O2SAT 16–97; BMI 38.5
--- NOTE | 2020-11-01 12:59 | PCM.HP.STD ---
History of Present Illness Date of Admission: 11/01/20 The patient is a 54 year old F [] Past Medical History Past Medical History (Chronic Problems): Chronic Problems (Last Reviewed 07/24/20 @ 13:30 by Fabi Garcia) Chronic right hip pain (Chronic) Vertigo (Chronic) Shoulder pain (Chronic) Shoulder impingement (Chronic) KAYLA (obstructive sleep apnea) (Chronic) Asthma (Chronic) Bronchitis (Chronic) Sleep apnea (Chronic) Wears Her CPAP as instructed Gastroesophageal reflux disease (Chronic) Medical History: Medical History (Last Reviewed 07/24/20 @ 13:30 by Fabi Garcia) Seasonal allergies (Acute) J30.2 Carpal tunnel syndrome (Acute) G56.00 Vitamin D deficiency (Acute) E55.9 Dizziness (Acute) R42 in hospital for it Shoulder pain (Chronic) M25.519 Shoulder impingement (Chronic) M75.40 KAYLA (obstructive sleep apnea) (Chronic) G47.33 Asthma (Chronic) J45.909 Bronchitis (Chronic) J40 Sleep apnea (Chronic) G47.30 Wears Her CPAP as instructed Gastroesophageal reflux disease (Chronic) K21.9 Chest pain (Acute) R07.9 Allergies codeine Adverse Reaction (Verified 10/24/20 15:06) Nausea Penicillins Adverse Reaction (Verified 10/24/20 15:06) Rash Home Medications: Ambulatory Orders Medication Instructions Recorded ibuprofen 100 mg tablet 200 mg PO PRN PRN 10/30/19 fluticasone furoate 100 1 ea INHALATION DAILY PRN ea 07/24/20 mcg-vilanterol 25 mcg/dose inhalation powder Omeprazole 40 mg PO DAILY PRN 10/24/20 Dicyclomine HCl [Bentyl] 10 mg PO DAILY 11/01/20 Surgical History: Surgical History (Last Reviewed 07/24/20 @ 13:30 by Fabi Garcia) Status post left foot surgery (Resolved) Z98.890 03/2018 for plantar fasciitis History of section (Resolved) Z98.891 history of essure placement (Resolved) History of carpal tunnel surgery of right wrist Z98.890 Surgical History: - - section and tubal ligation for control Psychiatric History: 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 Smoking Status: Never smoker - *Family History Maternal Family History: Family History (Last Reviewed 07/24/20 @ 13:30 by Fabi Garcia) Sister Breast cancer Cancer Thyroid disorder Father Heart disease History Items: - Paternal Family History: Family History (Last Reviewed 07/24/20 @ 13:30 by Fabi Garcia) Sister Breast cancer Cancer Thyroid disorder Father Heart disease History Items: Heart Disease VTE Information - Inpt Only VTE Present on Admission: No VTE Mechan Device Prophylaxis: SCD's, Knee High MUKESH Hose - Physical Exam Vitals/I&O's: Vital Signs Temp Pulse Resp BP Pulse Ox 99.0 F 89 16 117/71 97 11/01/20 11:38 11/01/20 11:38 11/01/20 11:38 11/01/20 11:38 11/01/20 11:38 Oxygen Delivery Method Room Air Weight: 108.409 kg Body Mass Index (BMI) 38.5 Microbiology Past 72 Hours 10/31/20 08:52 Interface Orders SARS-CoV-2 Antigen (Rapid) - Final Assessment/Plan All Active Problems (Last Reviewed 07/24/20 @ 13:30 by Fabi Garcia) Status post left foot surgery (Resolved) Seasonal allergies (Acute) Carpal tunnel syndrome (Acute) Vitamin D deficiency (Acute) Dizziness (Acute) Acute sinusitis, unspecified (Acute) Bronchitis (Acute) History of section (Resolved) history of essure placement (Resolved) Chest pain (Acute) History and physical exam dictated by Abi Villar on October 22, 2020 reviewed and updated and signed. No significant changes from previous document.
[2020-11-01] MEDS: morphine PF (epidural) 5 MG/10 ML Vial (13:24)
[2020-11-01] MEDS: Lidocaine 1% /Epi 1:100 (20ml) 20 ML Vial (13:24)
[2020-11-01] MEDS: Epinephrine (1 mg/ml) 1 MG/ML VIAL (13:25)
--- NOTE | 2020-11-01 13:41 | PRO.PCM_ITS ---
Procedure Report Date of Procedure: 11/01/20 Preoperative diagnosis: Left knee medial meniscus tear, arthritis Postoperative diagnosis : Same Procedure: Diagnostic video arthroscopy, partial medial meniscectomy, chondroplasty medial femoral condyle Surgeon: Dr. Jelani Krishna Anesthesia: Dr. Barnes, general , c d area supervisor Complications: None EBL: Minimal Indications for surgery: Patient is a 54-year-old female with a long-standing history of left knee pain. Patient failed adequate nonoperative treatment for the knee pain. MRI findings discussed with patient. Due to persistent symptoms they wish to proceed with knee arthroscopy. Findings: Intraoperative findings were consistent with her preoperative history, physical, radiographic exam. Details of procedure: Patient was taken to the OR transfer to the OR table. Nonoperative limb was appropriately padded, MUKESH hose and SCD applied. Patient was placed under the anesthetic agent. Operative knee was examined. No signs of infection. Operative upper thigh was well-padded and ultimately placed in a well-padded thigh saez. Operative lower extremity was prepped and draped in usual orthopedic sterile fashion for the procedure. Local anesthetic agent was sterilely injected into the proposed arthroscopic portals. Lateral portal was established with a knife. Took us through skin only. Dull trocar took us into the joint. The scope was placed through the lateral portal. Medial portal and ultimately established using a spinal needle followed by a knife through skin, followed by a dull trocar into the joint. Probe was placed to the medial portal. Patellofemoral joint: mderate arthritis was noted. Patella tracked nicely. No significant plica noted. Light chondroplasty performed on patella and section surrounding hypertrophic synovium Medial and lateral gutter: No loose bodies or pathology noted. Intercondylar notch: ACL appeared within normal limits. Nice resting tension. No loose bodies or cystic changes noted. Medial compartment: Complex tear posterior horn medial meniscus noted. Grade 1 and 2 changes medial femoral condyle consistent with arthritis. Partial medial meniscectomy was carried out using a forward biting basket and shaver. Light shaving chondroplasty was done. Pictures taken throughout. Lateral compartment: Chondral surfaces are within normal limits. No obvious lateral meniscus tear noted, and compartment fully probed Posterior medial compartment: No loose bodies or pathology noted. Posterior lateral compartment: No loose bodies or pathology noted. Arthroscopic pictures were taken and saved throughout the procedure. Knee was drained of excess fluid. Arthroscopic instruments were removed. Arthroscopic portals closed with simple sutures of 4-0 nylon. Knee joint injected with a combination of local anesthetic and Duramorph. sterile bandage was applied. Patient was transferred to the room bed and recovery room in satisfactory condition. They will be discharged to home when stable, follow-up in the office in 7-10 days. Patient and the family understand discharge instructions, all of their questions answered. This note was generated with [employer] dictation software. It may contain incorrect words, spelling, and punctuation that were not noted in checking the note before signing.
[2020-11-01] MEDS: Acetaminophen 500 MG Tablet 1000 MG PO (13:51)
[2020-11-01] MEDS: Ibuprofen 600 MG Tablet PO (15:47)
== END 2020-11-01 16:59 | disposition home or self-care (01) ==
LOC: SDC 11:15 → AC 11:15
PROVIDERS: PCP Internal Medicine; Referring Provider Orthopaedic Surgery; Visit Provider Orthopaedic Surgery
PROC: (CPT 29870; principal; 2020-11-01 12:25)
DX: S83.232A Complex tear of medial meniscus, current injury, left knee, initial encounter (principal); M17.12 Unilateral primary osteoarthritis, left knee; Z20.828 Contact with and (suspected) exposure to other viral communicable diseases; K21.9 Gastro-esophageal reflux disease without esophagitis; G47.33 Obstructive sleep apnea (adult) (pediatric); J45.909 Unspecified asthma, uncomplicated; Z78.0 Asymptomatic menopausal state
CPT/HCPCS: 29881; 36415; 71046; 80048; 85027; 87426; 93005; C9803; J7120; J2405

== ENCOUNTER → 2020-11-20 16:02 | Outpatient (CLI) | payer OTHER, SELFPAY ==
[2020-11-01 11:38] VITALS: BMI 38.5
--- NOTE | 2020-11-20 16:15 | RAD_ITS ---
STUDY: X-RAY - LEFT ANKLE REASON FOR EXAM: Female, 54 years old. LATERAL SIDED LEFT ANKLE PAIN AFTER KNEE SURGERY ON October. NO INJURY. TECHNIQUE: 3 view(s) of the ankle. COMPARISON: None. FINDINGS: Normal visualized distal tibia and fibula. Normal medial and lateral malleoli. Normal tibiotalar articulation and ankle mortise. Normal visualized talus and calcaneus. Moderate plantar calcaneal enthesophyte. Large posterior calcaneal enthesophyte. The visualized subtalar, talonavicular, calcaneocuboid and tarsal articulations are normal. The soft tissue structures are unremarkable. RAD/Ankle min 3 Views IMPRESSION: Normal x-ray examination of the ankle. Electronically Signed: Omari Enrique MD at 16:41 EST Tel , Service support ,
== END ==
PROVIDERS: PCP Internal Medicine; Referring Provider Podiatrist Foot & Ankle Surgery; Visit Provider Podiatrist Foot & Ankle Surgery
DX: M25.572 Pain in left ankle and joints of left foot (principal)
CPT/HCPCS: 73610

== ENCOUNTER 2020-11-25 16:30 | Outpatient (RCR) | payer OTHER, SELFPAY ==
[2020-11-01 11:38] VITALS: BMI 38.5
--- NOTE | 2020-11-12 16:11 | HP.PTEVAL_ITS ---
Patient's Visit Information LAVERNE GRAVES is a 54 year old F referred to Physical Therapy by FLORY Ricketts with a diagnosis of R knee arthroscopy. Date of Evaluation: 11/12/20 Physical Therapist: John Merlos PT, ATC - Visit Plan Frequency: 1x/Week Duration: 1 Week Plan: Issue and instruct pt on HEP for L LE strengthening, core stab ex's, and balance ex's. - Subjective DOS: 11/01/2020. Pt reports she had a torn meniscus of her L knee that needed to have surgery. Pt reports she is doing much better with her knee since the surgery, but notes her L ankle is very sore since having the surgery. Pt reports she has also lost her R hip pain she had prior to surgery, but notes she continues to feel unsteady in her L ankle while walking. Pt reports she has had a hard time with ambulating since having her surgery secondary to L ankle pain. Pt reports her L knee feels a little stiff today. Pt reports she has difficulty with sit to stand transfers secondary to pain. 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 No tingling or numbness in L LE. Pt reports her goal is to RTW in a week. 0/10 pain at rest, 3/10 pain at worst (increased activity) - Pain L knee pain Pain Intensity (Out of 10): 0 Pain Intensity Range: 3 - Objective Neuro: B LE sensation is WNL to light touch. B achilles unable to test today. Girth at joint line: L knee 45.5 cm, R knee 45 cm. Palpation: Pt is very sore on the lateral calcaneous. No signs of infection in L knee per pt. ROM:R knee 0-122 degrees, L knee 0-100 degrees. MMT: R knee 5/5 throughout, L knee 4-/5 and painful. Gait: Pt is able to ambulate without deviations. - Goals Goal 1:: I with HEP Goal Time Frame: 1 Week - Rehabilitation Potential Physical Therapy Diagnosis: Pt has R knee pain, weakness, and limited ROM secondary to R knee arthroscopy Rehabilitation Potential: Good - Anticipated Interventions Patient/Client Instruction: Educate patient on: Condition, Plan of Care For the Purpose of:: To improve self management Therapeutic Exercise to Include: Strength training, Endurance training, Balance training, Flexibilty training, Passive ROM, Active ROM, Dynamic Lumbar Stabilization For the Purpose of:: To decrease pain, To increase ROM, To improve muscle performance and motor function Thank you for the opportunity to evaluate your patient. For Medicare and Medicare HMO plans, please review the plan of care and approve it. It will need to be FAXED BACK to us at [phone] for Medicare purposes. For Medicare only, by signing this I certify the plan of care. Please let me know if there are questions or concerns regarding this plan of care. Physician Signature: Date:
--- NOTE | 2021-02-20 11:57 | HP.PT.NRP ---
LAVERNE GRAVES was seen in my office for initial evaluation on 11/12/20. The following Plan of Care was established for this patient: Initial Frequency: 1x/Week Initial Duration: 1 Week Patient/Client Instruction: Educate patient on: Condition, Plan of Care For the Purpose of:: To improve self management Therapeutic Exercise to Include: Strength training, Endurance training, Balance training, Flexibilty training, Passive ROM, Active ROM, Dynamic Lumbar Stabilization For the Purpose of:: To decrease pain, To increase ROM, To improve muscle performance and motor function This patient was last seen in our office . Pertinent comments regarding their Physical therapy will appear below: Pt was treated for 2 PT visits for R knee pain through the date of 11/25/20. Pt has not returned through todays date and is discontinued at this time. At this point I will be discontinuing this patient from physical therapy. I would be happy to see this patient again in the future if found appropriate by the physician. Thank you! John Merlos, PT, ATC
== END 2020-11-25 19:00 | disposition home or self-care (01) ==
LOC: PT 16:30
PROVIDERS: PCP Internal Medicine; Referring Provider Physician Assistant; Visit Provider Physician Assistant
DX: M17.12 Unilateral primary osteoarthritis, left knee (principal)
CPT/HCPCS: 97110; 97161

== ENCOUNTER → 2021-03-26 09:30 | Outpatient (CLI) | payer OTHER, SELFPAY ==
[2021-02-14 09:33] VITALS: BMI 38.7
--- NOTE | 2021-03-26 09:33 | RAD_ITS ---
STUDY: X-RAY - LEFT KNEE REASON FOR EXAM: Female, 55 years old. OSTEOARTHRITIS TECHNIQUE: 4 view(s) of the knee. COMPARISON: 06/24/2020. FINDINGS: No acute fracture, dislocation or osseous destruction. Mild medial compartment joint space narrowing. Lateral compartment preserved. Patellofemoral spacing preserved. Quadriceps enthesophyte. No significant soft tissue swelling. Trace joint effusion. RAD/Knee 4 or More Views IMPRESSION: Left knee medial compartment osteoarthritis Trace joint effusion Electronically Signed: Zelalem Benson DO at 10:50 EDT Tel , Service support ,
== END ==
PROVIDERS: PCP Internal Medicine; Referring Provider Orthopaedic Surgery; Visit Provider Orthopaedic Surgery
DX: M17.12 Unilateral primary osteoarthritis, left knee (principal)
CPT/HCPCS: 73564

== ENCOUNTER → 2021-05-06 10:01 | Outpatient (CLI) | payer OTHER, SELFPAY ==
[2021-05-06 09:36] VITALS: BMI 38.7
[2021-05-06 13:07] LABS: T4 Free Direct 0.95 ng/dL (0.76-1.46); Thyroid Stim Hormone (TSH) 2.37 uIU/mL (0.358-3.74)
== END ==
PROVIDERS: PCP Internal Medicine; Referring Provider Internal Medicine; Visit Provider Internal Medicine
DX: Z13.29 Encounter for screening for other suspected endocrine disorder (principal)
CPT/HCPCS: 36415; 84439; 84443

== ENCOUNTER → 2021-06-18 15:34 | Outpatient (CLI) | payer OTHER, SELFPAY ==
[2021-05-06 09:36] VITALS: BMI 38.7
--- NOTE | 2021-06-18 15:35 | BI_ITS ---
MAMMOGRAPHY - BILATERAL SCREENING REASON FOR EXAM: Female, 55 years old. Routine annual screening examination. PERTINENT HISTORY: Sister with breast cancer. TECHNIQUE: Digital bilateral breast kade (3D mammographic acquisition) in the CC and MLO projections. 2-D mediolateral oblique (MLO) and craniocaudad (CC) views of both breasts were obtained. CAD: Full Field Digital Mammography with Computer Added Detection was performed. COMPARISON: Comparison is made with prior study dated 03/04/2020 and 01/17/2019. FINDINGS: Breast Composition: The breasts are heterogeneously dense, which may obscure small masses. There are no dominant masses or suspicious calcifications. Stable small benign appearing bilateral axillary lymph nodes. No other significant abnormalities are identified. There has been no significant change since the prior study. BI/SCRN MAMM (CAD)W/KADE BILAT IMPRESSION: Stable bilateral screening mammogram. Yearly follow-up mammogram recommended. (A) ASSESSMENT CATEGORY: BIRADS Category 2: Benign. A letter regarding these results will be sent to the patient by the facility within 30 days. Approximately 10% of breast cancers are not detected by mammography. A normal mammogram should not delay biopsy of a clinically suspicious abnormality. [id number] Electronically Signed: Lonnie Grace MD at 8:16 EDT , Service support ,
== END ==
PROVIDERS: PCP Internal Medicine; Referring Provider Internal Medicine; Visit Provider Internal Medicine
DX: Z12.31 Encounter for screening mammogram for malignant neoplasm of breast (principal)
CPT/HCPCS: 77063; 77067

== ENCOUNTER → 2021-10-07 08:06 | Outpatient (CLI) | payer OTHER, SELFPAY ==
[2021-10-07 09:14] LABS: Absolute Lymphocyte Count 1.97 X10^3/uL (0.83-4.51); Absolute Neutrophil Count 4.4 X10^3/uL (2.0-7.7); Basophil# 0.03 X10^3/uL; Basophil% 0.4 % (0-1); Eosinophil# 0.25 X10^3/uL; Eosinophils% 3.5 % (0-5); Hematocrit 38.6 % (37-47); Hemoglobin 12.8 g/dL (12.0-15.0); Lymphocyte # 1.97 X10^3/ul (0.83-4.51); Lymphocyte % 27.6 % (19-41); Mean Corp Hgb Conc 33.2 g/dL (32-36); Mean Corpuscular Hgb 29.2 pg (27.0-32.0); Mean Corpuscular Volume 88.1 fL (81-99); Mean Platelet Vol. 11.2 fl (6.2-12.0); Monocyte# 0.43 X10^3/uL; NRBC Flagged by Analyzer 0 % (0-5); Neutrophil # 4.44 X10^3/uL (2.7-7.7); Neutrophil % 62.1 % (47-70); Platelet Count 294 K/mm3 (150-450); RBC Distribution Width CV 13.5 % (11.6-14.6); RBC Distribution Width SD 43.9 fl (35.1-43.9); Red Blood Count 4.38 M/mm3 (4.2-5.4); White Blood Count 7.2 K/mm3 (4.4-11.0)
[2021-10-07 09:44] LABS: AST(SGOT) 17 U/L (15-37); Alanine Aminotransfer ALT/SGPT 36 U/L (13-56); Albumin, Serum 3.3 g/dL (3.2-5.0); Alkaline Phosphatase 109 U/L (45-117); Bilirubin, Direct 0.13 mg/dL (0.00-0.30); Globulin 3.8 g/dL (2.2-4.2); Protein, Total 7.1 g/dL (6.4-8.2)
[2021-10-11 03:08] LABS: QNTFERON TB Mitogen Value > 10.00 IU/mL (.); QNTFERON TB Nil Value 0.03 IU/mL (.); QNTFERON TB1+ Ag Value 0.01 IU/mL (.); QNTFERON TB2+ Ag Value 0 IU/mL (.)
[2021-10-11 08:05] LABS: QNTIFERON TB Positive Criteria Negative (Negative)
== END ==
PROVIDERS: PCP Internal Medicine; Referring Provider Dermatology; Visit Provider Dermatology
DX: Z79.899 Other long term (current) drug therapy (principal)
CPT/HCPCS: 36415; 80076; 85025; 86480

== ENCOUNTER 2022-01-01 15:11 | Outpatient (CLI) | payer OTHER, SELFPAY ==
[2022-01-01 16:34] LABS: Absolute Neutrophil Count 4.7 X10^3/uL (2.0-7.7); Basophil# 0.02 X10^3/uL; Basophil% 0.3 % (0-1); Eosinophils% 2.7 % (0-5); Hematocrit 38.7 % (37-47); Lymphocyte % 26.7 % (19-41); Mean Corp Hgb Conc 33.6 g/dL (32-36); Mean Corpuscular Hgb 29.9 pg (27.0-32.0); Mean Platelet Vol. 11.1 fl (6.2-12.0); Monocyte# 0.57 X10^3/uL; Monocyte% 7.6 % (0-10); NRBC Flagged by Analyzer 0 % (0-5); Neutrophil # 4.65 X10^3/uL (2.7-7.7); Neutrophil % 62.2 % (47-70); Platelet Count 304 K/mm3 (150-450); RBC Distribution Width CV 13.3 % (11.6-14.6); RBC Distribution Width SD 43.9 fl (35.1-43.9); Red Blood Count 4.35 M/mm3 (4.2-5.4); White Blood Count 7.5 K/mm3 (4.4-11.0)
[2022-01-01 16:56] LABS: ALB/GLOB Ratio 0.9 RATIO (0.9-2.4); AST(SGOT) 15 U/L (15-37); Alanine Aminotransfer ALT/SGPT 36 U/L (13-56); Albumin, Serum 3.5 g/dL (3.2-5.0); Alkaline Phosphatase 114 U/L (45-117); Anion Gap 7 (5-15); BUN 14 mg/dL (7-18); BUN/Creat Ratio 17.3 RATIO (10-20); Calcium,Total 8.4 mg/dL (8.5-10.1); Chloride 108 mmol/L (98-107); Creatinine, Serum 0.81 mg/dL (0.55-1.02); EST Glomerular Filtration Rate 77 mL/min (>60); Est Glom Filt Rate - Afr Amer 93 mL/min (>60); Globulin 3.7 g/dL (2.2-4.2); Glucose 138 mg/dL (74-106); Potassium 3.7 mmol/L (3.5-5.1); Protein, Total 7.2 g/dL (6.4-8.2); Sodium Level 140 mmol/L (136-145); T4 Free Direct 0.82 ng/dL (0.76-1.46); Thyroid Stim Hormone (TSH) 2.43 uIU/mL (0.358-3.74)
[2022-01-01 17:16] LABS: Erythrocyte Sedimentation Rate 15 mm/hr (0-30)
[2022-01-03 14:49] LABS: ANTINUCLEAR ANTIBODIES DIRECT Negative (Negative)
== END 2022-01-01 23:59 | disposition home or self-care (01) ==
LOC: BIMLAB 15:11
PROVIDERS: PCP Internal Medicine; Referring Provider Internal Medicine; Visit Provider Internal Medicine
DX: M19.90 Unspecified osteoarthritis, unspecified site (principal); R76.8 Other specified abnormal immunological findings in serum; R53.83 Other fatigue; Z13.29 Encounter for screening for other suspected endocrine disorder
CPT/HCPCS: 36415; 80053; 84439; 84443; 85025; 85652; 86038; 86200; 86225; 86235; 86431

== ENCOUNTER 2022-01-12 07:56 | Outpatient (CLI) | payer OTHER, SELFPAY ==
--- NOTE | 2022-01-12 07:59 | RAD_ITS ---
STUDY: X-RAY - CERVICAL SPINE REASON FOR EXAM: Female, 56 years old. Left shoulder pain. Left cervical pain. TECHNIQUE: 3 view(s) of the cervical spine were obtained. COMPARISON: None FINDINGS: Normal anterior atlantoaxial articulation. Normal odontoid process. There is straightening of the normal cervical lordosis. Moderate degree of disc space narrowing and mild anterior spondylosis at the C5-C6 level. Marked degree of disc space narrowing and spondylosis at the C6-C7 level. Normal visualized intervertebral neuroforamina. The soft tissue structures are unremarkable. RAD/Cerv Spine 2 or 3 Views IMPRESSION: Loss of the normal cervical lordosis. Spondylosis and disc space narrowing at the C5-C6 and C6-C7 levels worse at the C6-C7 level. Electronically Signed: Lonnie Grace MD at 10:09 [facility] ,
--- NOTE | 2022-01-12 08:00 | RAD_ITS ---
STUDY: X-RAY - LEFT SHOULDER REASON FOR EXAM: Female, 56 years old. Shoulder pain with limited range of motion. TECHNIQUE: 4 view(s) of the shoulder. COMPARISON: None. FINDINGS: There is moderate degenerative arthrosis of the glenohumeral articulation. Normal acromioclavicular joint. Normal acromion. Normal humeral head and visualized proximal humerus. The soft tissue structures are unremarkable. Normal visualized pulmonary apex. RAD/Shoulder min 2 Views IMPRESSION: Moderate degree of joint space narrowing. Electronically Signed: Lonnie Grace MD at 10:08 EST ,
== END 2022-01-12 23:59 | disposition home or self-care (01) ==
LOC: RAD 07:59
PROVIDERS: PCP Internal Medicine; Referring Provider Orthopaedic Surgery; Visit Provider Orthopaedic Surgery
DX: M25.512 Pain in left shoulder (principal)
CPT/HCPCS: 72040; 73030

== ENCOUNTER 2022-02-04 11:32 | Outpatient (CLI) | payer OTHER, SELFPAY ==
--- NOTE | 2022-02-04 12:00 | MRI_ITS ---
STUDY: MRI CERVICAL SPINE WITHOUT CONTRAST REASON FOR EXAM: Female, 56 years old. STENOSIS, SPONDYLOSIS, DISC DEGEN pain left shoulder and neck TECHNIQUE: Standardized fat and water weighted pulse sequences were obtained in the sagittal and axial planes. COMPARISON: X-ray of the cervical spine dated January 12, 2022 FINDINGS: Normal foramen magnum and brainstem-cervical cord junction. Normal craniovertebral junction. Normal anterior atlantoaxial articulation. Normal odontoid process. There is straightening/mild reversal of the normal cervical lordosis. C2-3: Normal endplates. The disc is desiccated. Normal disc height and morphology. Normal central canal and intervertebral neural foramina. C3-4: Normal endplates. Mild posterior disc space narrowing and annular bulging contributing to mild central canal stenosis and mass effect on the thecal sac and midline anterior aspect of the cord. Normal right neural foramen. Mild to moderate left foraminal stenosis is present without nerve root compression C4-5: Normal endplates. Mild disc space narrowing without disc herniation or bulging. Normal central canal and intervertebral neural foramina. C5-6: Normal endplates. Moderate disc space narrowing with a broad-based is herniation causing compression across the anterior aspect of the cord and mild central canal stenosis. Normal intervertebral neural foramina. C6-7: Moderate disc space narrowing with a diffuse disc spur complex eccentric to the left causing compression on the left anterior aspect of the cord and of the nerve root proximal to the foraminal opening. Moderate central canal stenosis is also present. Moderate left foraminal stenosis with nerve root compression due to uncovertebral hypertrophy. Normal right neural foramen.. C7-T1: Normal endplates. Normal disc height and morphology. Normal central canal and intervertebral neural foramina. Normal cervical cord. There is no demonstrated cervical cord syrinx cavity. Normal visualized soft tissue structures. MRI/Spine Cervical (Routine) IMPRESSION: 1. Multilevel degenerative changes, as described above. 2. Diffuse disc bulges/disc spur complexes causing mild to moderate central canal stenosis and cord compression at C5-C6 and C6-C7 Electronically Signed: Mike Palafox MD at 14:36 EDT ,
== END 2022-02-04 23:59 | disposition home or self-care (01) ==
LOC: MRI 11:33
PROVIDERS: PCP Internal Medicine; Referring Provider Orthopaedic Surgery; Visit Provider Orthopaedic Surgery
DX: M48.02 Spinal stenosis, cervical region (principal); M47.22 Other spondylosis with radiculopathy, cervical region; M50.323 Other cervical disc degeneration at C6-C7 level
CPT/HCPCS: 72141

== ENCOUNTER 2022-03-24 08:00 | Outpatient (RCR) | payer OTHER, SELFPAY ==
--- NOTE | 2022-02-11 11:54 | HP.PTEVAL_ITS ---
Patient's Visit Information LAVERNE GRAVES is a 56 year old F referred to Physical Therapy by Dr. Jelani Krishna MD with a diagnosis of CERVICAL SPINAL STENOSIS, SPONDYLOSIS W/RADIC, DDD C67 AND PAIN IN L SHLD. Date of Evaluation: 02/11/22 Physical Therapist: Cristel Sommer, PT, Cert MDT - Visit Plan Frequency: 2-3x /Week Duration: 4-6 Weeks Plan: US TO NECK/L SHLD. AVOID INCREASED SX'S WITH EX. NECK ROM AND STRENGTHENING. POSTURE CORRECTION/STRENGTHENING, INSTRUCTION IN APPROPRIATE BODY MECHANICS/COMPUTER ERGONOMICS AND ACTIVITY MODIFICATIONS. DIMITRIS UE ROM, STRETCHING AND STRENGTHENING. HEP INSTRUCTION. - Subjective Diagnosis: CERVICAL SPINAL STENOSIS AND L SHLD PAIN. 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 Disability: NO. Present symptoms: NECK PAIN, MILD HEADACHES. INTERMITTENT MILD R SHLD PAIN. NO L SHLD PAIN SINCE INJECTION. LAST WEEK. INTERMITTENT DIMITRIS HAND/FINCER NUMBESS AND TINGLING. Present since: CHRONIC. Pain Scale: Worst - 5/10 Least - 1/10. Currently: 01/29. Commenced as a result of: NO APPARENT REASON OTHER THAN WORK. Symptoms at onset: NECK. Worse: LOOKING DOWN, WORKING ON COMPUTER, READING, DRIVING, TRYING TO LOOK RIGHT AND LEFT. Better: HEAT, ADVIL. Disturbed sleep: YES. Previous history/Previous treatment: PT A LONG TIME AGO HERE AT . This episode: L SHLD CORTISONE SHOT. REC'D PRESCRIPTION FOR MALOXACAM BUT HAS NOT STARTED TAKING IT YET. PATIENT REPORTS DR. KAUR RECOMMENDED SURGERY AT REVIEW OF IMAGING YESTERDAY BUT PATIENT DECIDED TO GO AHEAD AND TRY PT AND IF THIS DOESN'T WORK SHE IS GOING TO CONSIDER FOLLOW THROUGH WITH PAIN MGMT CONSULT ORDERED WITH DR. MAK AND DR. KAUR WAS AGREEABLE. Dizziness: SOMETIMES WHEN STANDS UP FAST AND RELATES IT TO BLOOD PRESSURE. Tinnitis: NO. Nausea: NO. Shortness of Breath: YES - WITH INCREASED ACTIVITY - NOT NEW. Difficulty Swollowing: NO. Gait: WEARING BRACE ON L FOOT, L KNEE INJECTION NOV/DEC 2021, RIGHT HIP PAIN, RECENT DEVELOPMENT OF MUSCLE PROBLEM IN RIGHT UPPER FLANK. (H/O L KNEE TORN MENISCUS WITH SX). Accidents: UNREMARKABLE. Unexplained weight loss: NO. Imaging: RECENT NECK X-RAYS AND MRI. RECENT L SHLD X-RAYS. MRI/Spine Cervical (Routine). IMPRESSION: 1. Multilevel degenerative changes, as described above. 2. Diffuse disc bulges/disc spur complexes causing mild to moderate. central canal stenosis and cord compression at C5-C6 and C6-C7. . Electronically Signed: Mike Palafox MD. at 14:36 EDT. , . RAD/Shoulder min 2 Views. IMPRESSION: Moderate degree of joint space narrowing. . Electronically Signed: Lonnie Grace MD. at 10:08 EST. , . . PMH/Recent major surgery: ACHILLES SX, PLANTAR FASCITIS SX, CTR R, L KNEE MENISCUS SX. PSORIASIS. - Objective Sitting Posture/Standing Posture: POOR. FH. RSH'S. Active Correction of posture: WORSE BUT ABLE TO SIT WITH SUPPORT IN LOW BACK TO PASSIVELY CORRECT POSTURE IN CLINIC TODAY WITHOUT INCREASED PAIN. Other Observations: INDEP GAIT AND TRANSFERS. 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 PATIENT IS R HAND DOMINANT. DIMITRIS UE'S 5/5 BUT L SHLD TESTING PROVOKES L SHLD PAIN. Sensory defic it: DIMITRIS UE LIGHT TOUCH SENSATION IS GROSSLY INTACT AND SYMMETRICAL. ROM deficit: DIMITRIS SHLD ACTIVE ELEVATION TO APPROX 130 DEG AND WITH C/O L SHLD PAIN AT THE END OF THE AVAILABLE ROM. DIMITRIS SHLD IR/ER IN SUPINE WITH 80 DEG SHLD ABD IS SYMMETRIC WITH FULL ER AND 25% REDUCED IR. C/O INTERMITTENT CATCHING TYPE PAIN L SHLD WITH TESTING. Reflexes: UNABLE TO ELICIT DIMITRIS UE DTR'S. Cervical Mvmt Loss: Flex: MIN. Pro: NIL. Ext: MOD. Ret: LASHON. RSB: MOD - LASHON. LSB: MOD TO LASHON. R Rot: MOD. L Rot: MOD. PATIENT C/O INCREASED PAIN WITH CERVICAL ROM TESTING ALL PLANES. Postural strength: POOR. Palpation: NO ACUTE UPPER THORACIC, NECK, OCCIPUT OR DIMITRIS SHLD TENDERNESS WITH LIGHT PALPATION. OTHER: INDEP TRANSFERS SIT TO SUPINE AND REVERSE BUT PATIENT BECAME DIZZY ONCE IN SUPINE. DIZZINESS REDUCED/ABOLISHED WITH PILLOW WITHIN A MINUTE OR TWO. TREATMENT: NEUROMUSCULAR REEDUCATION - INTRODUCTION TO RETRAINING OF MVMT AND POSTURE FOR SITTING ACTIVITIES. - Balance/Special Test Scores Oswestry Neck Score: 13 - Goals Goal 1:: DECREASE C/O NECK AND UE SX'S. Goal Time Frame: 4-6 Weeks Goal 2:: IMPROVE PERSONAL CARE, LIFTING, READING, SLEEP, WORK, DRIVING, AND RECREATIONAL FUNCTION Goal Time Frame: 4-6 Weeks Goal 3:: INSTRUCT IN PROPHYLAXIS Goal Time Frame: 4-6 Weeks - Anticipated Interventions Patient/Client Instruction: Educate patient on: Condition, Plan of Care, Risk Factors For the Purpose of:: To improve self management Therapeutic Exercise to Include: Strength training, Body mechanics, Postural training, Flexibilty training, Neuromotor development, Scapular Strength/Stabilization For the Purpose of:: To decrease pain, To increase ROM, To improve muscle performance and motor function, To increase tolerance to activity/condition/position, To improve ability of physical actions for home/community/work/leisure TENS: Yes IF ES: Yes Cryotherapy (ice pack, ice massage): Yes Thermo therapy (hot pack): Yes Ultrasound (thermal/non thermal): Yes For the Purpose of:: To decrease pain, To improve nutrient delivery to tissue Thank you for the opportunity to evaluate your patient. For Medicare and Medicare HMO plans, please review the plan of care and approve it. It will need to be FAXED BACK to us at [phone] for Medicare purposes. For Medicare only, by signing this I certify the plan of care. Please let me know if there are questions or concerns regarding this plan of care. Physician Signature: Date:
--- NOTE | 2022-03-24 08:46 | HP.PTDCSUM ---
It has been my pleasure to treat LAVERNE GRAVES referred by Dr. Jelani Krishna MD, with the diagnosis of CERVICAL SPINAL STENOSIS, SPONDYLOSIS W/RADIC, DDD C67 AND PAIN IN L SHLD for a total of 10 visit(s). Discharge Date: 03/24/22 Please see the following information for a summary of their discharge status. Subjective: Pt. reports being 90% better overall. She reports no radiating pain at this point in time. She is comfortable with all of her exercises at this point in time. NECK Pain Intensity (Out of 10): 2 LEFT SHLD Pain Intensity (Out of 10): 0 RIGHT SHLD Pain Intensity (Out of 10): 0 % Improvement: 90 Objective/Function: I gave her the above exercises as HEP. Pt. is I with these exercises. I gave her a print out of these exercises. She is now having minimal symptoms, some mild UT soreness after working, but minimal. She will be DC to HEP at this point in time with instruction to continue with her exercises 4-5 times per week. Goal 1:: DECREASE C/O NECK AND UE SX'S. Goal Progress: Goal Met Goal 2:: IMPROVE PERSONAL CARE, LIFTING, READING, SLEEP, WORK, DRIVING, AND RECREATIONAL FUNCTION Goal Progress: Goal Met Goal 3:: INSTRUCT IN PROPHYLAXIS Goal Progress: Goal Met Plan: DC to HEP at this point in time. Discharge Comments: Pt. did well with PT with initial focus on reducing symptoms progressing into scapular stability/strengthening exercises. Pt. is tolerating well. She does have some mild UT soreness after working, but reduces with in a a few hours. Pt. is I with HEP for scapular strengthening and cervical ROM exercises and will be DC to HEP at this point in time. If there are questions or concerns regarding this patient's physical therapy, please feel free to call me at [phone]. Thank you for the referral of this patient. Sincerely, Ernesto Marinos, DPT Balance/Gait/Functional tests - Balance/Special Test Scores Oswestry Neck Score: 9
== END 2022-03-24 10:51 | disposition home or self-care (01) ==
LOC: PT 08:00
PROVIDERS: PCP Internal Medicine; Referring Provider Orthopaedic Surgery; Visit Provider Orthopaedic Surgery
DX: M25.512 Pain in left shoulder (principal)
CPT/HCPCS: 97035; 97110; 97112; 97162; 97530

== ENCOUNTER → 2022-04-06 | Outpatient (CLI) | payer OTHER, SELFPAY ==
--- NOTE | 2022-04-06 14:10 | RAD_ITS ---
STUDY: X-RAY - PELVIS AND RIGHT HIP REASON FOR EXAM: Female, 56 years old. Right hip pain. TECHNIQUE: 3 views of the pelvis and hip. COMPARISON: None. FINDINGS: There is a non-specific bowel gas pattern. Wires along both sides of the pelvis, which may be secondary to tubal ligation. Normal bilateral iliac wings, sacroiliac joints and visualized sacrum. Normal bilateral superior and inferior pubic rami. Normal pubic symphysis. Normal bilateral ischial tuberosities. Mild arthrosis of both hips. RAD/HIP, UNI W/ Pelvis 2-3 Views IMPRESSION: Mild arthrosis of both hips. No other abnormality. Electronically Signed: Juan Zambrano MD at 12:23 EDT ,
--- NOTE | 2022-04-06 14:10 | RAD_ITS ---
EXAM: XR LUMBOSACRAL SPINE, 4 OR 5 VIEWS CLINICAL INDICATION: low back pain TECHNIQUE: Frontal, lateral and bilateral oblique views of the lumbar spine. This report was created using FlowJob report generation technology. COMPARISON: None. FINDINGS: VERTEBRAE: Unremarkable. Preserved vertebral body height. No fracture. No spondylolisthesis. Preservation of the normal lumbar lordosis. No significant facet arthropathy. DISC SPACES: Mild multilevel disc space narrowing and vertebral body hypertrophy. GASTROINTESTINAL TRACT: Normal bowel gas pattern. RAD/L/S Spine Min 4 Views IMPRESSION: Mild diffuse spondylosis. Electronically Signed: Eren Olguin MD at 13:39 EDT ,
== END | disposition home or self-care (01) ==
LOC: RAD 14:06
PROVIDERS: PCP Internal Medicine; Referring Provider Chiropractor; Visit Provider Chiropractor
DX: M99.03 Segmental and somatic dysfunction of lumbar region (principal); M99.05 Segmental and somatic dysfunction of pelvic region; M25.551 Pain in right hip
CPT/HCPCS: 72110; 73502

== ENCOUNTER → 2022-05-06 | Outpatient (CLI) | payer OTHER, SELFPAY ==
--- NOTE | 2022-05-06 10:08 | NEURO ---
NCS and/or EMG Patient Report Ordering Doctor: Phillip Oviedo DATE OF SERVICE: 05/06/22 Angela presents for testing in the upper limbs. She has intermittent numbness and tingling in the hands. She had right carpal tunnel release about 3 years ago Electrodiagnostic Findings: Testing performed in the upper limbs. Normal median motor and ulnar motor studies. Sensory responses are normal. Normal median and ulnar F-waves. Needle EMG testing shows no evidence of denervation with normal motor unit action potentials. Electrodiagnostic Assessment: This is a normal electrodiagnostic study in the upper limbs. There is no electrodiagnostic evidence for peripheral neuropathy or cervical radiculopathy.
== END | disposition home or self-care (01) ==
LOC: PSN 08:35
PROVIDERS: PCP Internal Medicine; Referring Provider Orthopaedic Surgery; Visit Provider Orthopaedic Surgery
DX: M47.22 Other spondylosis with radiculopathy, cervical region (principal)
CPT/HCPCS: 95886; 95912

== ENCOUNTER → 2022-07-03 | Outpatient (CLI) | payer OTHER, SELFPAY ==
--- NOTE | 2022-07-03 14:09 | MRI_ITS ---
HISTORY: Right hip pain. TECHNIQUE: Multiplanar and multisequence MR images of the RIGHT hip. IV Contrast Dosage and Agent: None. 234 images. COMPARISON: XR 04/06/2022. FINDINGS: BONE: No acute femoral neck fracture, avascular necrosis of the femoral head, or sacral insufficiency fracture. No significant bone marrow edema. JOINT: Mild degenerative changes of both hips.] No joint effusion or abnormal periarticular fluid collections. TENDONS: Bilateral gluteal tendinopathy and partial tears. Intact rectus femoris, iliopsoas, and hamstring tendinous attachments. SOFT TISSUES: Mild posterior subcutaneous edema at the level of the lower lumbar spine. Preservation of fat surrounding the right sciatic nerve. PELVIS: Artifact from Essure coils. No significant free fluid or pathologically enlarged lymph nodes. MRI/Lower Ext Joint Only (Routine) IMPRESSION: Bilateral gluteal tendinopathy and tears. No acute fracture or other significant bone marrow signal abnormality identified in the right hip. Electronically Signed: Jessica Vizcarra MD at 10:38 EDT ,
== END | disposition home or self-care (01) ==
LOC: MRI 14:07
PROVIDERS: PCP Internal Medicine; Referring Provider Chiropractor; Visit Provider Chiropractor
DX: M25.551 Pain in right hip (principal); M19.90 Unspecified osteoarthritis, unspecified site
CPT/HCPCS: 73721

== ENCOUNTER → 2022-08-07 | Outpatient (CLI) | payer OTHER, SELFPAY ==
--- NOTE | 2022-08-07 07:10 | BI_ITS ---
MAMMOGRAPHY - BILATERAL SCREENING REASON FOR EXAM: Female, 56 years old. Routine annual screening examination. PERTINENT HISTORY: Sister with breast cancer. History of prior bilateral breast aspirations. TECHNIQUE: Digital bilateral breast kade (3D mammographic acquisition) in the CC and MLO projections. 2-D mediolateral oblique (MLO) and craniocaudad (CC) views of both breasts were obtained. CAD: Full Field Digital Mammography with Computer Added Detection was performed. COMPARISON: Comparison is made with prior study 06/18/2021 and 03/04/2020. FINDINGS: Breast Composition: The breasts are heterogeneously dense, which may obscure small masses. There are no dominant masses or suspicious calcifications. Stable benign-appearing bilateral axillary lymph nodes. No other significant abnormalities are identified. There has been no significant change since the prior study. BI/SCRN MAMM (CAD)W/KADE BILAT IMPRESSION: Stable bilateral screening mammogram. Yearly follow-up mammogram recommended. (A) ASSESSMENT CATEGORY: BIRADS Category 2: Benign. A letter regarding these results will be sent to the patient by the facility within 30 days. Approximately 10% of breast cancers are not detected by mammography. A normal mammogram should not delay biopsy of a clinically suspicious abnormality. [id number] Electronically Signed: Lonnie Grace MD at 8:28 EDT ,
== END | disposition home or self-care (01) ==
LOC: OPBI 07:33
PROVIDERS: PCP Internal Medicine; Visit Provider Internal Medicine
DX: Z12.31 Encounter for screening mammogram for malignant neoplasm of breast (principal)
CPT/HCPCS: 77063; 77067

== ENCOUNTER 2022-09-09 11:00 | Outpatient (RCR) | payer OTHER, SELFPAY ==
--- NOTE | 2022-07-23 07:59 | HP.PTEVAL_ITS ---
Patient's Visit Information LAVERNE GRAVES is a 56 year old F referred to Physical Therapy by Dr. Maggy Porter, [place] with a diagnosis of Bilateral Glut Tendonosis. Date of Evaluation: 07/23/22 Physical Therapist: Cayla Brooks DPT - Visit Plan Frequency: 2x /Week Duration: 4 Weeks Plan: Aquatics: Focus on LE and core strength/stabilization- decrease pelvic translation with SLS activities - Subjective She had a ankle issue then torn left meniscus 2 years ago- and her hip was always hurting but she figured once she got everything else taken care of it would get better but it isn't getting any better. Currently her right hip hurts the worst- she had an injection by Dr. Jelani Krishna 1.5 days ago. She has had one prior that helped for about 6 weeks. She had a lot of pain while he was putting the injection in so she is not sure exactly what happened. She has had an x-ray and MRI last month. Shows tendinopathy and tears in the gluts. She hurts all the time. Best 1-2/10 Eases: ice, heat Worst: 6-7/10 Agg: being in one position for to long, walking, lifting, bending over to put the brace for her ankle on. Describes the pain as mostly dull and achy but when its a 6-7/10 its more a sharp pain and does have some groin pain. Pain is located in the right hip joint- some MD's think its bursitis- but if you push on both sides it flares it up too. Does have some pain in the right leg since the injection but does not normally radiate. No N/T. Goes to Dr. Porter for chiro 1x a month- but was going more frequent when she was really flared up. Supposed to try to get there every 2 weeks. Sleep: disturbed- usually a left side sleeper. She has had back problems but normally its in her shoulder/neck. 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 PMHx/Meds: no changes since chiro visit. - Objective Posture: FH, RS, increased kyphosis- can correct with verbal and tactile cues but does not maintain. Gait: slightly antalgic- increased pelvic translation. Stairs: asc/desc 8 recip with 2 HR- poor control with descent and increase UE use on rails for asc. HR.TR: able with UE A. SLS: 5-8 seconds with moderate pelvic drop. Palpation: tender along greater troch and down the ITband and along glut med to the sacrum. ROM: Lumbar: all motions decreased by 25%- reports increased pain with flexion. Hip: WFL does report pain with IR/ER and flexion. Strength: Core: fair minus, Hip: flexion: 4-/5, Abd/Add/Extn: 4/5, IR/ER: 4-/5, Knee: 4+/5, Ankle: 5/5. Flex: Gastroc: moderate, Hamstring: moderate, Piriformis: moderate - Special Tests R Hip Scour: Positive R Hip Quadrant - Intraarticular Pathology: Positive R Hip KRISSY - Intraarticular Pathology: Positive R Hip FADDIR - Labrum: Positive R Hip Trendelenberg - Glut Medius: Positive R Hip Neisha - IT Band: Positive - Balance/Special Test Scores Lower Extremity Functional Score: 42 - Goals Goal 1:: Patient will be I with HEP and progression Goal Time Frame: 4-6 Weeks Goal 2:: Patient will maintain proper posture t/o tx session to demo increased core s/s Goal Time Frame: 4-6 Weeks Goal 3:: Patient will SLS for 10 sec without pelvic drop Goal Time Frame: 4-6 Weeks Goal 4:: Patient will report 80% improvement Goal Time Frame: 4-6 Weeks - Rehabilitation Potential Physical Therapy Diagnosis: Patient presents with hypomobility- she has decreased pain free ROM, LE and core strength/stabilization, flex and muscular endurance leading to poor posture and increased pain with ADL's. Rehabilitation Potential: Fair - Anticipated Interventions Patient/Client Instruction: Educate patient on: Benefits of Fitness Program Therapeutic Exercise to Include: Strength training, Endurance training, Balance training, Coordination, Agility training, Body mechanics, Postural training, Flexibilty training, Gait and locomotor training, Neuromotor development, In an aquatic setting, Dynamic Lumbar Stabilization, Scapular Strength/Stabilization For the Purpose of:: To improve muscle performance and motor function Thank you for the opportunity to evaluate your patient. For Medicare and Medicare HMO plans, please review the plan of care and approve it. It will need to be FAXED BACK to us at [phone] for Medicare purposes. For Medicare only, by signing this I certify the plan of care. Please let me know if there are questions or concerns regarding this plan of care. Physician Signature: Date:
--- NOTE | 2022-10-22 08:03 | HP.PT.NRP ---
LAVERNE GRAVES was seen in my office for initial evaluation on 07/23/22. The following Plan of Care was established for this patient: Initial Frequency: 2x /Week Initial Duration: 4 Weeks Patient/Client Instruction: Educate patient on: Benefits of Fitness Program Therapeutic Exercise to Include: Strength training, Endurance training, Balance training, Coordination, Agility training, Body mechanics, Postural training, Flexibilty training, Gait and locomotor training, Neuromotor development, In an aquatic setting, Dynamic Lumbar Stabilization, Scapular Strength/Stabilization For the Purpose of:: To improve muscle performance and motor function This patient was last seen in our office . Pertinent comments regarding their Physical therapy will appear below: Patient has not attended physical therapy in over 30 days- at this time d/c is appropriate and return to the MD for further evaluation as needed At this point I will be discontinuing this patient from physical therapy. I would be happy to see this patient again in the future if found appropriate by the physician. Thank you! Cayla Brooks DPT Balance/Gait/Functional tests - Balance/Special Test Scores Lower Extremity Functional Score: 42
== END 2022-09-09 19:00 | disposition home or self-care (01) ==
LOC: PT 11:00
PROVIDERS: PCP Internal Medicine; Referring Provider Chiropractor; Visit Provider Chiropractor
DX: M67.959 Unspecified disorder of synovium and tendon, unspecified thigh (principal)
CPT/HCPCS: 97113; 97162

== ENCOUNTER → 2022-10-28 | Outpatient (CLI) | payer OTHER, SELFPAY ==
[2022-10-28 07:54] LABS: Absolute Lymphocyte Count 2.33 X10^3/uL (0.83-4.51); Absolute Neutrophil Count 4.6 X10^3/uL (2.0-7.7); Basophil# 0.03 X10^3/uL; Basophil% 0.4 % (0-1); Eosinophil# 0.21 X10^3/uL; Eosinophils% 2.7 % (0-5); Hematocrit 39.2 % (37-47); Hemoglobin 12.9 g/dL (12.0-15.0); Lymphocyte # 2.33 X10^3/ul (0.83-4.51); Lymphocyte % 29.4 % (19-41); Mean Corp Hgb Conc 32.9 g/dL (32-36); Mean Corpuscular Hgb 29.4 pg (27.0-32.0); Mean Corpuscular Volume 89.3 fL (81-99); Mean Platelet Vol. 10.9 fl (6.2-12.0); Monocyte# 0.75 X10^3/uL; Monocyte% 9.5 % (0-10); NRBC Flagged by Analyzer 0 % (0-5); Neutrophil # 4.57 X10^3/uL (2.7-7.7); Neutrophil % 57.6 % (47-70); Platelet Count 268 K/mm3 (150-450); RBC Distribution Width CV 13.8 % (11.6-14.6); RBC Distribution Width SD 45.2 fl (35.1-43.9); Red Blood Count 4.39 M/mm3 (4.2-5.4); White Blood Count 7.9 K/mm3 (4.4-11.0)
[2022-10-28 08:20] LABS: AST(SGOT) 15 U/L (15-37); Alanine Aminotransfer ALT/SGPT 31 U/L (13-56); Albumin, Serum 3.6 g/dL (3.2-5.0); Alkaline Phosphatase 92 U/L (45-117); Bilirubin, Direct 0.15 mg/dL (0.00-0.30); Globulin 3.6 g/dL (2.2-4.2); Protein, Total 7.2 g/dL (6.4-8.2)
[2022-10-31 13:07] LABS: QNTFERON TB Mitogen Value > 10.00 IU/mL (.); QNTFERON TB Nil Value 0.05 IU/mL (.); QNTFERON TB1+ Ag Value 0.05 IU/mL (.); QNTFERON TB2+ Ag Value 0.05 IU/mL (.)
[2022-10-31 13:25] LABS: QNTIFERON TB Positive Criteria Negative (Negative)
== END | disposition home or self-care (01) ==
LOC: LAB 07:26
PROVIDERS: PCP Internal Medicine; Referring Provider Dermatology; Visit Provider Dermatology
DX: L40.0 Psoriasis vulgaris (principal); Z79.899 Other long term (current) drug therapy
CPT/HCPCS: 36415; 80076; 85025; 86480

== ENCOUNTER → 2023-02-12 | Outpatient (CLI) | payer OTHER, SELFPAY ==
--- NOTE | 2023-02-12 11:27 | RAD_ITS ---
STUDY: X-RAY - LEFT KNEE REASON FOR EXAM: Female, 57 years old. KNEE PAIN TECHNIQUE: 4 view(s) of the knee. COMPARISON: Comparison is made with prior study of March 26, 2021. FINDINGS: Normal visualized distal femur. Normal visualized proximal tibia and fibula. Normal proximal tibiofibular articulation. There is moderate degenerative arthrosis of the medial femorotibial compartment with moderate joint space narrowing. Normal lateral femorotibial compartment. There is moderate degenerative arthrosis of the patellofemoral articulation. Small joint effusion. RAD/Knee 4 or More Views IMPRESSION: Degenerative arthrosis. Small joint effusion. Electronically Signed: Lonnie Grace MD at 13:25 EDT ,
== END | disposition home or self-care (01) ==
LOC: RAD 11:22
PROVIDERS: PCP Internal Medicine; Referring Provider Orthopaedic Surgery; Visit Provider Orthopaedic Surgery
DX: M17.32 Unilateral post-traumatic osteoarthritis, left knee (principal)
CPT/HCPCS: 73564

== ENCOUNTER → 2023-09-09 | Outpatient (CLI) | payer OTHER, SELFPAY ==
--- NOTE | 2023-09-09 09:04 | BI_ITS ---
MAMMOGRAPHY - BILATERAL SCREENING REASON FOR EXAM: Female, 57 years old. Routine annual screening examination. PERTINENT HISTORY: Sister with breast cancer. TECHNIQUE: Digital bilateral breast kade (3D mammographic acquisition) in the CC and MLO projections. 2-D mediolateral oblique (MLO) and craniocaudad (CC) views of both breasts were obtained. CAD: Full Field Digital Mammography with Computer Added Detection was performed. COMPARISON: Comparison is made with prior examination dated August 07, 2022 and June 18, 2021. FINDINGS: Breast Composition: The breasts are heterogeneously dense, which may obscure small masses. There are no dominant masses or suspicious calcifications. Stable small benign appearing bilateral axillary lymph nodes. No other significant abnormalities are identified. There has been no significant change since the prior study. BI/SCRN MAMM (CAD)W/KADE BILAT IMPRESSION: Stable bilateral screening mammogram. Yearly follow-up mammogram recommended. (A) ASSESSMENT CATEGORY: BIRADS Category 2: Benign. A letter regarding these results will be sent to the patient by the facility within 30 days. Approximately 10% of breast cancers are not detected by mammography. A normal mammogram should not delay biopsy of a clinically suspicious abnormality. [id number] Electronically Signed: Lonnie Grace MD at 14:58 EDT ,
== END | disposition home or self-care (01) ==
PROVIDERS: PCP Internal Medicine; Referring Provider Internal Medicine; Visit Provider Internal Medicine
DX: Z12.31 Encounter for screening mammogram for malignant neoplasm of breast (principal); Z80.3 Family history of malignant neoplasm of breast
CPT/HCPCS: 77063; 77067

== ENCOUNTER 2024-03-21 07:02 | Day surgery (SDC) | payer OTHER, SELFPAY ==
--- NOTE | 2024-03-21 07:18 | PCM.HP.STD ---
[facility] - General General Date of Admission: 08/06/20 Date of Service: 03/21/24 Chief Complaint: Personal history of colon polyps HPI Narrative LAVERNE GRAVES, is a 58 F who presents via open access today for a surveillance colonoscopy due to a personal history of colon polyps. Previous colonoscopy was November 2017. She has not any bright red blood per rectum or melena. She otherwise enjoys good health. 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 Umair Lizarraga MD) Arthritis Asthma Bronchitis Carpal tunnel syndrome Chest pain Colon cancer screening CPAP (continuous positive airway pressure) dependence Dizziness Fatigue Gastric reflux Gastroesophageal reflux disease Health care maintenance Hx of colonic polyp Hypertension Left ankle pain Low iron Non-smoker KAYLA (obstructive sleep apnea) Palpitations Post-menopausal Preventative health care Psoriasis Rheumatoid factor positive Screening for thyroid disorder Seasonal allergies Shoulder impingement Shoulder pain Tear of meniscus of left knee Vitamin D deficiency Home Medications ibuprofen 100 mg tablet 200 mg PO PRN PRN Pain Score 1-08/3110/30/19 [History Last Taken Unknown] turmeric 400 mg capsule 400 mg PO DAILY 01/01/22 [History Last Taken Unknown] hydrocortisone 2.5 % topical cream 1 applic topical PRN 12/09/23 [History Last Taken Unknown] Allergy/AdvReac Type Severity Reaction Status Date / Time codeine AdvReac Nausea Verified 03/15/24 09:40 Penicillins AdvReac Rash Verified 03/15/24 09:40 Family History Sister Breast cancer Cancer cervical Thyroid disorder Father Heart disease Surgical History (Updated 03/15/24 @ 09:45 by Aurora Owen) History of carpal tunnel surgery of right wrist History of section history of essure placement Hx of colonoscopy Hx of left knee surgery Status post left foot surgery Social History current occupational status: retired Smoking Status: Never smoker alcohol intake: current alcohol intake frequency: holidays/special occasions only substance use type: does not use what type of physical activity do you participate in: none ROS Constitutional Constitutional: Reports systems reviewed and no addt'l complaints, except as documented Cardiovascular Cardiovascular: Denies chest pain Respiratory/Chest Respiratory/Chest: Denies shortness of breath at rest Gastrointestinal Gastrointestinal: Denies abdominal pain, change in bowel habits, hematochezia or melena Physical Exam Const alert, oriented x3 and no apparent distress General Appearance: cooperative and comfortable Eyes General Eye: normal appearance of both eyes Neck General: normal visual inspection Chest inspection of chest normal Resp Effort and Inspection: able to speak in complete sentences and symmetric chest movement Auscultation: clear to auscultation bilaterally Cardio regular rate and regular rhythm GI soft to palpation, non-tender and non-distended Extremity no calf tenderness Neuro oriented x3 Psych thought process normal Assessment & Plan Assessment/Plan (1) Hx of colonic polyp: PLAN: The patient presents today for surveillance colonoscopy due to a personal history of colon polyps. She presents via open access. She is aware of the technique, benefit, risk, alternatives. She has had an opportunity to ask and have questions answered. We will proceed as noted. Umair Lizarraga M.D., F.A.C.S.
[2024-03-21 07:20] VITALS: BP 132/70; PULSE 81; RESP 16; TEMP 36.2; O2SAT 100; BMI 41.4
[2024-03-21] MEDS: Lactated Ringers 1,000 ML 15 ML IV (07:33)
[2024-03-21 08:17] VITALS: BP 116/42; BP 132/70; PULSE 80; RESP 18; TEMP 36.5; O2SAT 96
[2024-03-21 08:20] VITALS: BP 126/69; BP 132/70; PULSE 76; RESP 18; O2SAT 96
--- NOTE | 2024-03-21 08:21 | OP.CCLET_ITS ---
03/21/2024 Rose Ronquillo MD [address] [place] [address] [place] [address] Re : Colonoscopy procedure for Angela Burnettr Dear Dr. Ronquillo This procedure was performed on Thursday, March 21, 2024. My impressions and recommendations are as follows: Impressions : - Non-thrombosed internal hemorrhoids and internal hemorrhoids that prolapse with straining, but spontaneously regress to the resting position (Grade II) found on digital rectal exam. - Multiple non-bleeding colonic angioectasias. Refer to photographs please. - The examination was otherwise normal. - No specimens collected. Recommendations : - Discharge patient to home. - Resume previous diet. - Continue present medications. - Repeat colonoscopy in 5 years for surveillance. My findings are described in the full procedure note, which is enclosed. If I can be of further assistance, please feel free to contact me at Doctor phone number(s): Work: . Sincerely, Umair Lizarraga MD 03/21/2024 8:20:49 AM This report has been signed electronically.
--- NOTE | 2024-03-21 08:21 | OP.COLON_ITS ---
Patient Name: Angela Casanova Procedure Date: 03/21/2024 7:49 AM Date of : 1965 Age: 58 Procedure: Colonoscopy Indications: High risk colon cancer surveillance: Personal history of colonic polyps Providers: Umair Lizarraga MD Referring MD: Rose Ronquillo MD Medicines: See the Anesthesia note for documentation of the administered medications Patient Profile: Last Colonoscopy: 2017. Complications: No immediate complications. Procedure: Pre-Anesthesia Assessment: - Prior to the procedure, a History and Physical was performed, and patient medications and allergies were reviewed. The patient's tolerance of previous anesthesia was also reviewed. The risks and benefits of the procedure and the sedation options and risks were discussed with the patient. All questions were answered, and informed consent was obtained. Prior Anticoagulants: The patient has taken no anticoagulant or antiplatelet agents. ASA Grade Assessment: II - A patient with mild systemic disease. After reviewing the risks and benefits, the patient was deemed in satisfactory condition to undergo the procedure. After I obtained informed consent, the scope was passed under direct vision. Throughout the procedure, the patient's blood pressure, pulse, and oxygen saturations were monitored continuously. The adult colonoscope was introduced through the anus and advanced to the cecum, identified by appendiceal orifice and ileocecal valve. The colonoscopy was performed without difficulty. The patient tolerated the procedure well. The quality of the bowel preparation was good. The ileocecal valve and the appendiceal orifice were photographed. Scope In: 7:59:14 AM Scope Withdrawal Time 0 hours 8 minutes 35 seconds Scope Out: 8:13:54 AM Total Procedure Duration Time 0 hours 14 minutes 40 seconds Findings: The digital rectal exam findings include non-thrombosed internal hemorrhoids and internal hemorrhoids that prolapse with straining, but spontaneously regress to the resting position (Grade II). Multiple medium-sized angioectasias without bleeding were found in the entire colon. The exam was otherwise without abnormality. Impression: - Non-thrombosed internal hemorrhoids and internal hemorrhoids that prolapse with straining, but spontaneously regress to the resting position (Grade II) found on digital rectal exam. - Multiple non-bleeding colonic angioectasias. Refer to photographs please. - The examination was otherwise normal. - No specimens collected. Recommendation: - Discharge patient to home. - Resume previous diet. - Continue present medications. - Repeat colonoscopy in 5 years for surveillance. Procedure Code(s): --- Professional --- 31163, Colonoscopy, flexible; diagnostic, including collection of specimen(s) by brushing or washing, when performed (separate procedure) Diagnosis Code(s): --- Professional --- Z86.010, Personal history of colonic polyps K64.1, Second degree hemorrhoids K55.20, Angiodysplasia of colon without hemorrhage CPT copyright 2021 [employer]. All rights reserved. The codes documented in this report are preliminary and upon propellant charge zone assembler review may be revised to meet current compliance requirements. Umair Lizarraga MD 03/21/2024 8:20:49 AM This report has been signed electronically. Number of Addenda: 0 Note Initiated On: 03/21/2024 7:49 AM
[2024-03-21 08:25] VITALS: BP 123/67; BP 132/70; PULSE 77; RESP 18; O2SAT 97
[2024-03-21 08:30] VITALS: BP 123/71; BP 132/70; PULSE 71; RESP 18; TEMP 36.4; O2SAT 98
[2024-03-21 09:06] VITALS: BP 132/70
== END 2024-03-21 09:07 | disposition home or self-care (01) ==
LOC: EN 07:05 → AC 07:06
PROVIDERS: PCP Internal Medicine; Referring Provider Internal Medicine; Visit Provider Surgery
PROC: 0DJD8ZZ Inspection of Lower Intestinal Tract, Via Natural or Artificial Opening Endoscopic (ICD-10-PCS; CPT 45378; principal; 2024-03-21 07:55)
DX: Z12.11 Encounter for screening for malignant neoplasm of colon (principal); I10 Essential (primary) hypertension; Z86.010 Personal history of colon polyps; K64.1 Second degree hemorrhoids; K55.20 Angiodysplasia of colon without hemorrhage; K21.9 Gastro-esophageal reflux disease without esophagitis; G47.33 Obstructive sleep apnea (adult) (pediatric)
CPT/HCPCS: 45378; J7120

== ENCOUNTER → 2024-10-10 | Outpatient (CLI) | payer OTHER, SELFPAY | END | disposition home or self-care (01) | LOC: OPBI 08:09 | PROVIDERS: PCP Internal Medicine; Referring Provider Internal Medicine; Visit Provider Internal Medicine | DX: Z12.31 Encounter for screening mammogram for malignant neoplasm of breast (principal) | CPT/HCPCS: 77063; 77067 ==

== ENCOUNTER → 2024-10-11 | Outpatient (CLI) | payer OTHER, SELFPAY ==
[2024-10-11 12:41] LABS: Absolute Lymphocyte Count 2.92 X10^3/uL (0.83-4.51); Absolute Neutrophil Count 6.5 X10^3/uL (2.0-7.7); Basophil# 0.05 X10^3/uL; Basophil% 0.5 % (0-1); Eosinophil# 0.21 X10^3/uL; Eosinophils% 1.9 % (0-5); Hematocrit 40.2 % (37-47); Hemoglobin 13.1 g/dL (12.0-15.0); Lymphocyte # 2.92 X10^3/ul (0.83-4.51); Lymphocyte % 26.7 % (19-41); Mean Corp Hgb Conc 32.6 g/dL (32-36); Mean Corpuscular Volume 89.1 fL (81-99); Mean Platelet Vol. 10.9 fl (6.2-12.0); Monocyte# 1.25 X10^3/uL; Monocyte% 11.4 % (0-10); NRBC Flagged by Analyzer 0 % (0-5); Neutrophil # 6.45 X10^3/uL (2.7-7.7); Platelet Count 283 K/mm3 (150-450); RBC Distribution Width CV 13.6 % (11.6-14.6); RBC Distribution Width SD 44.3 fl (35.1-43.9); Red Blood Count 4.51 M/mm3 (4.2-5.4); White Blood Count 10.9 K/mm3 (4.4-11.0)
[2024-10-11 13:04] LABS: AST(SGOT) 40 U/L (15-37); Alanine Aminotransfer ALT/SGPT 84 U/L (13-56)
== END | disposition home or self-care (01) ==
LOC: LAB 12:07
PROVIDERS: PCP Internal Medicine; Referring Provider Dermatology; Visit Provider Dermatology
DX: L40.0 Psoriasis vulgaris (principal); L40.59 Other psoriatic arthropathy; L02.92 Furuncle, unspecified; Z79.899 Other long term (current) drug therapy
CPT/HCPCS: 36415; 84450; 84460; 85025; 86480

== ENCOUNTER → 2024-11-10 | Outpatient (CLI) | payer OTHER, SELFPAY ==
[2024-11-10 10:24] LABS: AST(SGOT) 46 U/L (15-37); Alanine Aminotransfer ALT/SGPT 114 U/L (13-56)
== END | disposition home or self-care (01) ==
LOC: LAB 09:25
PROVIDERS: PCP Internal Medicine; Referring Provider Dermatology; Visit Provider Dermatology
DX: Z79.899 Other long term (current) drug therapy (principal)
CPT/HCPCS: 36415; 84450; 84460

== ENCOUNTER → 2024-11-20 | Outpatient (CLI) | payer OTHER, SELFPAY ==
[2024-11-20 11:45] LABS: Basophil# 0.04 X10^3/uL; Basophil% 0.5 % (0-1); Eosinophil# 0.33 X10^3/uL; Eosinophils% 4.5 % (0-5); Hematocrit 41.2 % (37-47); Hemoglobin 13.4 g/dL (12.0-15.0); Lymphocyte % 31.4 % (19-41); Mean Corp Hgb Conc 32.5 g/dL (32-36); Mean Corpuscular Hgb 28.9 pg (27.0-32.0); Mean Platelet Vol. 11.2 fl (6.2-12.0); Monocyte# 0.65 X10^3/uL; Monocyte% 8.9 % (0-10); NRBC Flagged by Analyzer 0 % (0-5); Neutrophil # 3.99 X10^3/uL (2.7-7.7); Neutrophil % 54.4 % (47-70); Platelet Count 309 K/mm3 (150-450); RBC Distribution Width CV 13.9 % (11.6-14.6); RBC Distribution Width SD 45.2 fl (35.1-43.9); Red Blood Count 4.63 M/mm3 (4.2-5.4); White Blood Count 7.3 K/mm3 (4.4-11.0)
[2024-11-20 12:37] LABS: AST(SGOT) 52 U/L (15-37); Alanine Aminotransfer ALT/SGPT 124 U/L (13-56); Albumin, Serum 3.6 g/dL (3.2-5.0); Alkaline Phosphatase 110 U/L (45-117); Anion Gap 2 (5-15); BUN 15 mg/dL (7-18); BUN/Creat Ratio 19.5 RATIO (10-20); Calcium,Total 9.6 mg/dL (8.5-10.1); Chloride 107 mmol/L (98-107); Creatinine, Serum 0.77 mg/dL (0.55-1.02); EST Glomerular Filtration Rate 81 mL/min (>60); Est Glom Filt Rate - Afr Amer 98 mL/min (>60); Globulin 3.7 g/dL (2.2-4.2); Glucose 100 mg/dL (74-106); Potassium 4.1 mmol/L (3.5-5.1); Protein, Total 7.3 g/dL (6.4-8.2); Sodium Level 138 mmol/L (136-145)
[2024-11-21 15:07] LABS: CMV Acute Antibody IgM < 30.0 AU/mL (0.0-29.9); EBV Acute VCA IgM < 36.0 U/mL (0.0-35.9); EBV Nuclear Antigen IgG < 18.0 U/mL (0.0-17.9); EBV-VCA IgG < 18.0 U/mL (0.0-17.9); GGTP 14 IU/L (0-60)
== END | disposition home or self-care (01) ==
LOC: LAB 10:48
PROVIDERS: PCP Internal Medicine; Referring Provider Internal Medicine; Visit Provider Internal Medicine
DX: R74.8 Abnormal levels of other serum enzymes (principal)
CPT/HCPCS: 36415; 80053; 82977; 85025; 86645; 86664; 86665

== ENCOUNTER → 2024-11-28 | Outpatient (CLI) | payer OTHER, SELFPAY ==
--- NOTE | 2024-11-28 09:27 | US_ITS ---
STUDY: ABDOMINAL ULTRASOUND - RIGHT UPPER QUADRANT REASON FOR VISIT: Female, 58 years old Elevated Liver enzymes TECHNIQUE: Ultrasound evaluation of the right upper quadrant was performed with real-time and static mitchell-scale imaging. TECHNICAL QUALITY: Adequate. COMPARISON: None. FINDINGS: Liver: The liver is enlarged and measures 19.7 cm. There is increased echogenicity consistent with fatty infiltration. The bile ducts are within normal limits. There is hepatic color flow. The direction of portal flow is hepatopetal. There is no demonstrated mass lesion. Gallbladder: Normal distended gallbladder. The gallbladder wall measures 2.4 mm. There is a negative sonographic Moncada''s sign. There is no pericholecystic fluid. There are no gallstones. Common Bile Duct (C.B.D.): The common bile duct measures 5.5 mm. Pancreas: Normal size of the head, body and tail of the pancreas. There is normal echogenicity of the pancreas. There is no demonstrated pancreatic mass or cyst. Right Kidney: Normal size of the right kidney. The right kidney measures 13.3 cm x 4.1 cm x 4.5 cm. Normal renal cortex. The right cortex measures 1.0 cm. There is no demonstrated renal mass or cyst. There is no right hydronephrosis. US/Liver IMPRESSION: Hepatomegaly and fatty infiltration of the liver. Electronically Signed: Lonnie Grace MD at 12:27 EST ,
== END | disposition home or self-care (01) ==
LOC: US 09:26
PROVIDERS: PCP Internal Medicine; Referring Provider Internal Medicine; Visit Provider Internal Medicine
DX: R74.8 Abnormal levels of other serum enzymes (principal)
CPT/HCPCS: 76705

== ENCOUNTER → 2024-12-13 | Outpatient (CLI) | payer OTHER, SELFPAY ==
[2024-12-19 16:09] LABS: HPV APTIMA, High Risk Negative (Negative)
== END | disposition home or self-care (01) ==
LOC: LABSPEC 15:28
PROVIDERS: PCP Internal Medicine; Referring Provider Nurse Practitioner Family; Visit Provider Nurse Practitioner Family
DX: Z12.4 Encounter for screening for malignant neoplasm of cervix (principal)
CPT/HCPCS: 87624; 88175; G0145

== ENCOUNTER 2025-01-16 09:30 | Outpatient (RCR) | payer OTHER, SELFPAY ==
--- NOTE | 2024-11-28 08:02 | HP.PTEVAL_ITS ---
Patient's Visit Information Visit Information Visit Information: LAVERNE GRAVES is a 58 year old F referred to Physical Therapy by Dr. Rose Ronquillo MD with a diagnosis of Arthritis/shoulder pain. 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 She started to have some B shoulder pain at about the same time. She has pain in B shoulders and the R is the worst. But it varies day to day. She is also having L burning/aching pain in her L elbow. She is seeing a network operations manager at the end of the month. She is hoping to find some exercises to keep her as mobile as can be. She has psoriasis so it could be related. She does have a chest x-ray that shows some compressed discs. She is guessing her pain is worse on bad weather days. She can sleep on her L shoulder because can not lay on the R side. Pt has injections in her R hip for a long time now for R hip pain. She can not sleep on her R side and she is bone on bone. Pain R shoulder pain: Pain Intensity (Out of 10): 0 L shoulder pain: Pain Intensity (Out of 10): 2 R hip pain: Pain Intensity (Out of 10): 0 Objective Objective: LE MMT: R hip flex 18.4 and L 15.3 R knee ext 15.8 and L 17.5 R knee flex 9.6 and L 9.4 R hip abd 3+/5 and L 4-/5 Bridge 1/2 normal ROM with some increase pain Tight R piriformis and increase stretch pain B with LTR R handed R steel tester strength 35 and L 25 UE AROM: R shoulder flex 128 and L 115 R shoulder ABD 130 and L 120 R shoulder IR T12 and L L1 R shoulder ER 40 and L 31 UE MMT: R shoulder Flex 8.2 and L 6.2 R shoulder ABD 4.8 and L 7.2 R shoulder ER 9 and L 7.7 Gait: walks with decrease stance time on the R Pt is able to heel and toe raise but with decreased ROM B Balance/Special Test Scores Quick DASH Score: 29.5450 Goals Goal 1:: I HEP Goal Time Frame: 4-6 Weeks Goal 2:: Decrease B shoulder pain by 50% Goal Time Frame: 4-6 Weeks Goal 3:: Increase B shoulder AROM (at the time of the eval: UE AROM: R shoulder flex 128 and L 115 R shoulder ABD 130 and L 120 R shoulder IR T12 and L L1 R shoulder ER 40 and L 31) Goal Time Frame: 4-6 Weeks Goal 4:: Increase ability to bridge with less pain and improved ROM (1/2 at eval) Goal Time Frame: 4-6 Weeks Rehabilitation Potential Rehabilitation Potential: Good Anticipated Interventions Patient/Client Instruction: Educate patient on: Condition and Plan of Care For the Purpose of:: To decrease pain, To increase ROM, To improve nutrient delivery to tissue, To improve muscle performance and motor function, To improve ability to perform ADL's, To increase tolerance to activity/condition/position, To improve performance and independence with ADL's, To decrease level of supervision to perform tasks, To improve ability of physical actions for home/community/work/leisure, To improve gait and locomotor functions, To improve health of tissue, To decrease soft tissue restriction and To increase flexibility/ROM Therapeutic Exercise to Include: Strength training, Postural training, Flexibilty training, Passive ROM, Active ROM and Scapular Strength/Stabilization For the Purpose of:: To decrease pain, To increase ROM, To improve nutrient delivery to tissue, To improve muscle performance and motor function, To improve ability to perform ADL's, To increase tolerance to activity/condition/position, To improve performance and independence with ADL's, To decrease level of supervision to perform tasks, To improve ability of physical actions for home/community/work/leisure, To improve gait and locomotor functions, To improve health of tissue, To decrease soft tissue restriction and To increase flexibility/ROM Functional Training to Include: Gait training For the Purpose of:: To improve gait and locomotor functions Text: Thank you for the opportunity to evaluate your patient. For Medicare and Medicare HMO plans, please review the plan of care and approve it. It will need to be FAXED BACK to us at [phone] for Medicare purposes. For Medicare only, by signing this I certify the plan of care. Please let me know if there are questions or concerns regarding this plan of care. Physician Signature: Date:
--- NOTE | 2025-01-16 10:26 | HP.PTDCSUM ---
Discharge Summary D/C summary: It has been my pleasure to treat LAVERNE GRAVES referred by Dr. Rose Ronquillo MD, with the diagnosis of B Arthritis/shoulder pain R>L for a total of 3 visit(s). Discharge Date: 01/16/25 Please see the following information for a summary of their discharge status. Subjective Subjective: Pt reports that her L shoulder is bothering her today and is more tight. Pain R shoulder pain: Pain Intensity (Out of 10): 4 L shoulder pain: Pain Intensity (Out of 10): 2 R hip pain: Pain Intensity (Out of 10): 0 Overall Improvement % Improvement: 70 Objective Objective/Function: UE AROM: R shoulder flex 140 and L 126 R shoulder ABD 130 and L 120 R shoulder IR T12 and L L1 R shoulder ER 76 and L 74 Goals Goal 1:: I HEP Goal Progress: Goal Met Goal 2:: Decrease B shoulder pain by 50% Goal Progress: Goal Met Goal 3:: Increase B shoulder AROM (at the time of the eval: UE AROM: R shoulder flex 128 and L 115 R shoulder ABD 130 and L 120 R shoulder IR T12 and L L1 R shoulder ER 40 and L 31) Goal Progress: Goal Met Goal 4:: Increase ability to bridge with less pain and improved ROM (1/2 at eval) Plan Plan: DC PT to HEP D/C Information Discharge Comments: DC PT to HEP d/c sentence: If there are questions or concerns regarding this patient's physical therapy, please feel free to call me at [phone]. Thank you for the referral of this patient. Sincerely, Huma Henry, MPT Balance/Gait/Functional tests Balance/Special Test Scores Quick DASH Score: 15.9075 Improvement % Improvement: 70
== END 2025-01-16 13:14 | disposition home or self-care (01) ==
LOC: PT 09:30
PROVIDERS: PCP Internal Medicine; Referring Provider Internal Medicine; Visit Provider Internal Medicine
DX: M19.90 Unspecified osteoarthritis, unspecified site (principal); M25.519 Pain in unspecified shoulder; M25.559 Pain in unspecified hip
CPT/HCPCS: 97110; 97162

== ENCOUNTER → 2025-03-05 | Outpatient (CLI) | payer OTHER, SELFPAY ==
--- NOTE | 2025-03-05 07:29 | US_ITS ---
PROCEDURE: ELASTOGRAPHY PARENCHYMA/ORGAN 03/05/2025 REASON FOR EXAM: LIVER FIBROSIS AND MASH TECHNIQUE: Elastography examination was performed. COMPARISON: None FINDINGS: KPA: 9.3 Velocity: 1.74 m/sec Metavir score: F2/F3 Imaging of the spleen was performed. The spleen measures 10.3 cm x 4.7 cm x 3.6 cm. US/Elastography Parenchyma/Organ IMPRESSION: Metavir score: F2 F3. Reading Location: [place] [id number]
[2025-03-05 09:15] LABS: Absolute Lymphocyte Count 2.37 X10^3/uL (0.83-4.51); Absolute Neutrophil Count 4.6 X10^3/uL (2.0-7.7); Basophil# 0.03 X10^3/uL; Basophil% 0.4 % (0-1); Eosinophil# 0.17 X10^3/uL; Eosinophils% 2.2 % (0-5); Hematocrit 39.3 % (37-47); Hemoglobin 13.1 g/dL (12.0-15.0); Lymphocyte # 2.37 X10^3/ul (0.83-4.51); Lymphocyte % 30.2 % (19-41); Mean Corp Hgb Conc 33.3 g/dL (32-36); Mean Corpuscular Hgb 29.6 pg (27.0-32.0); Mean Corpuscular Volume 88.9 fL (81-99); Mean Platelet Vol. 11.2 fl (6.2-12.0); Monocyte# 0.67 X10^3/uL; Monocyte% 8.5 % (0-10); NRBC Flagged by Analyzer 0 % (0-5); Neutrophil # 4.57 X10^3/uL (2.7-7.7); Neutrophil % 58.3 % (47-70); Platelet Count 283 K/mm3 (150-450); RBC Distribution Width CV 14.2 % (11.6-14.6); Red Blood Count 4.42 M/mm3 (4.2-5.4); White Blood Count 7.8 K/mm3 (4.4-11.0)
[2025-03-05 09:40] LABS: Erythrocyte Sedimentation Rate 28 mm/hr (0-30)
[2025-03-05 09:43] LABS: Hemoglobin A1c 6.4 % (<=5.6)
[2025-03-05 10:13] LABS: Cholesterol 154 mg/dL (<=200); HIV Nonreactive (Nonreactive); Hepatitis B Surface Antibody REAC; High Density Lipoprotein 58 mg/dL; Low Density Lipoprotein Calc. 78 mg/dL; Triglycerides 87 mg/dL; Very Low Density Lipoprotein 17 mg/dL (5-40); Vitamin D,25 Hydroxy 26.6 ng/mL (30-100); cholesterol:hdl ratio screen 2.64
[2025-03-05 10:35] LABS: CRP 4.79 mg/L (0.0-3.0); Ferritin 289 ng/mL (22-378); Iron 70 ug/dL (50-170); Iron Binding Capacity,Total 392 ug/dL (250-450); Iron Binding Capacity,Unsat 322 ug/dL (228-428)
[2025-03-05 10:36] LABS: ALB/GLOB Ratio 1.6 RATIO (0.9-2.4); AST(SGOT) 38 U/L (<=31); Alanine Aminotransfer ALT/SGPT 81 U/L (<=34); Albumin, Serum 4.3 g/dL (3.4-4.8); Alkaline Phosphatase 115 U/L (35-104); Anion Gap 10 (5-15); BUN 18 mg/dL (4-19); BUN/Creat Ratio 23.4 RATIO (10-20); Bilirubin, Direct 0.19 mg/dL (0.00-0.30); Calcium,Total 9.4 mg/dL (7.6-11.0); Carbon Dioxide 24.3 mmol/L (21.0-32.0); Chloride 104 mmol/L (98-108); Creatinine, Serum 0.78 mg/dL (0.70-1.20); EST Glomerular Filtration Rate 87 (>60); Globulin 2.6 g/dL (2.2-4.2); Glucose 103 mg/dL (70-99); Potassium 4.4 mmol/L (3.3-5.1); Sodium Level 139 mmol/L (133-145); Total Bilirubin 0.35 mg/dL (0.00-1.30)
[2025-03-06 14:08] LABS: ANTINUCLEAR ANTIBODIES DIRECT Negative (Negative); Anti-Mitochondrial AB <20.0 Units (0.0-20.0)
[2025-03-08 01:06] LABS: Albumin 3.5 g/dL (2.9-4.4); Alpha-1-Globulins 0.3 g/dL (0.0-0.4); Alpha-2-Globulins 0.8 g/dL (0.4-1.0); Anti-Smooth Muscle ABS 9 Units (0-19); Ceruloplasmin 28.3 mg/dL (19.0-39.0); Copper, Serum or Plasma 106 ug/dL (80-158); GGTP 12 IU/L (0-60); HEPATITIS B SURFACE AG Negative (Negative); Hep C Antibodies Non Reactive (Non Reactive); Hepatitis A IgM Antibody Negative (Negative); Hepatitis B Core AB IgM Negative (Negative); Immunoglobulin A 186 mg/dL (87-352); Immunoglobulin G 1015 mg/dL (586-1602); Immunoglobulin M 133 mg/dL (26-217); PROEL- TOTAL PROTEIN 6.7 g/dL (6.0-8.5)
== END | disposition home or self-care (01) ==
PROVIDERS: PCP Internal Medicine; Referring Provider Internal Medicine; Visit Provider Internal Medicine
DX: R74.8 Abnormal levels of other serum enzymes (principal); R53.82 Chronic fatigue, unspecified; E55.9 Vitamin D deficiency, unspecified; K76.0 Fatty (change of) liver, not elsewhere classified
CPT/HCPCS: 76981; 80053; 80061; 80074; 82248; 82306; 82390; 82525; 82728; 82784; 82977; 83036; 83516; 83540; 83550; 84165; 84443; 85025; 85610; 85652; 86038; 86140; 86334; 86703; 86706

== ENCOUNTER → 2025-04-10 | Outpatient (CLI) | payer OTHER, SELFPAY ==
[2025-04-10 11:16] LABS: AST(SGOT) 27 U/L (<=31); Alanine Aminotransfer ALT/SGPT 47 U/L (<=34); Alkaline Phosphatase 112 U/L (35-104); Bilirubin, Direct 0.16 mg/dL (0.00-0.30); Globulin 3.1 g/dL (2.2-4.2); Protein, Total 7.2 g/dL (5.9-8.4); Total Bilirubin 0.32 mg/dL (0.00-1.30)
== END | disposition home or self-care (01) ==
LOC: LAB 09:44
PROVIDERS: PCP Internal Medicine; Referring Provider Internal Medicine; Visit Provider Internal Medicine
DX: R74.8 Abnormal levels of other serum enzymes (principal); K76.0 Fatty (change of) liver, not elsewhere classified; K71.9 Toxic liver disease, unspecified
CPT/HCPCS: 36415; 80076

== ENCOUNTER → 2025-11-19 | Outpatient (CLI) | payer OTHER, SELFPAY ==
[2025-11-19 12:02] LABS: AST(SGOT) 76 U/L (<=31); Alanine Aminotransfer ALT/SGPT 152 U/L (<=34); Albumin, Serum 4.1 g/dL (3.4-4.8); Alkaline Phosphatase 113 U/L (35-104); Anion Gap 9 (7-18); BUN 18 mg/dL (4-19); BUN/Creat Ratio 22.4 RATIO (10-20); Calcium,Total 10.0 mg/dL (7.6-11.0); Carbon Dioxide 26.4 mmol/L (20.0-29.0); Chloride 103 mmol/L (96-106); Globulin 3.4 g/dL (2.2-4.2); Glucose 104 mg/dL (70-99); Potassium 4.5 mmol/L (3.5-5.1)
== END | disposition home or self-care (01) ==
LOC: LAB 11:02
PROVIDERS: PCP Internal Medicine; Referring Provider Internal Medicine; Visit Provider Internal Medicine
DX: K76.0 Fatty (change of) liver, not elsewhere classified (principal)
CPT/HCPCS: 36415; 80053